=== PATIENT | female | born 1955 | race Caucasian/White ===

== ENCOUNTER 2016-12-29 15:28 | Outpatient (RCR) | payer BC ==
--- OUTSIDE RECORDS SUMMARY | 2016-12-29 15:32 | XMS REPORT | Continuity of Care Document ---
Author Author [facility] Organization [facility] Address Unknown Phone Unavailable Care Team Providers Care Steward/Stewardess Lounge Name Role Phone HENNY BROWN MD PCP Insurance Providers Payer Name Policy Number Subscriber Name Relationship [facility] [id number] Sujata Negron 18 Self / Same As Patient Advance Directives Directive Response Recorded Date/Time Advance Directives No 12/06/14 2:16am Problems Active Problems Medical Problem Onset Date Status Fever Unknown Acute Fever Unknown Acute Influenza-like symptoms Unknown Acute Nausea Unknown Acute Medications No known medications. Social History Social History Problem Response Recorded Date/Time Alcohol Use Denies Use 12/06/2014 2:16am Recreational Drug Use No 12/06/2014 2:16am Recent Foreign Travel No 04/25/2016 10:40am Sexually Transmitted Disease No 12/06/2014 2:16am HIV/AIDS No 12/06/2014 2:16am Sexually Transmitted Disease No 12/06/2014 2:16am Hospital Discharge Instructions No hospital discharge instructions. Plan of Care Prescriptions See Medication Section Functional Status No functional status results. Allergies, Adverse Reactions, Alerts No known allergies. Immunizations No immunization records. Vital Signs No known vital signs results. Results No known relevant diagnostic tests, laboratory data and/or discharge summary. Procedures No known history of procedures. Encounters Encounter Location Arrival/Admit Date Discharge/Depart Date Attending Provider Discharged Recurring [facility] 06/27/16 3:30pm 5:03pm HENNY BROWN MD
== END 2017-01-01 13:00 | disposition home or self-care (01) ==
PROVIDERS: ATTEND Orthopaedic Surgery
DX: Z47.1 Aftercare following joint replacement surgery (principal); Z96.641 Presence of right artificial hip joint

== ENCOUNTER 2020-02-20 07:58 | Inpatient (IN) | payer BC ==
[2020-02-20] VITALS (7 sets, daily range): BP systolic 104–141; BP diastolic 58–84
[~2020-02-20] VITALS: Ht 167.6 cm; Wt 79.4 kg
[2020-02-20] MEDS ORDERED: HYDR-3781 (08:02)
[2020-02-20] MEDS ORDERED: METH4TAB10 (08:02)
--- NOTE | 2020-02-20 08:06 | ED Chest Pain ---
General Chief Complaint: Chest Pain Stated Complaint: CHEST PAIN Source: patient History of Present Illness Date Seen by Provider: February 20, 2020 Time Seen by Provider: 08:01 Initial Comments 65-year-old female presents with chest pain. Patient reports that started sometime during the night she thinks maybe around 3 AM this morning. Patient is very nonspecific in her chest pain is across her whole chest. Nothing makes it worse or better per that she can recall. Patient is very very anxious and reports that she had a difficult night sleeping. Patient denies any nausea, vomiting, radiation of the pain, diaphoresis, shortness of breath. Patient has difficulty answering questions due to her anxiety with very nonspecific answers. Allergies and Home Medications Allergies Coded Allergies: tramadol (Verified Adverse Reaction, Unknown, nausea, 02/20/20) Patient Home Medication List Home Medication List Reviewed: Yes Review of Systems Review of Systems Constitutional: No chills, No fever Respiratory: Denies Cough, Denies Shortness of Air, Denies SOA With Exertion, Denies SOA at Rest Cardiovascular: Chest Pain; Denies Irregular Heart Rate, Denies Lightheadedness Gastrointestinal: Denies Abdominal Pain, Denies Diarrhea, Denies Nausea, Denies Vomiting Musculoskeletal: no symptoms reported Skin: no symptoms reported Psychiatric/Neurological: No Symptoms Reported Past [id number]-[id number] Hx Past Med/Social Hx: Reviewed Nursing Past Med/Soc Hx Patient Social History Alcohol Use: Denies Use Recreational Drug Use: No Smoking Status: Never a Smoker Immunizations Up To Date Tetanus Booster (TDap): Unknown Past Medical History Surgeries: Yes (COLONOSCOPY) Abdominal, Tonsillectomy Respiratory: No Cardiac: No Neurological: No Reproductive Disorders: No Sexually Transmitted Disease: No HIV/AIDS: No Gastrointestinal: No Musculoskeletal: No Endocrine: No Cancer: No Psychosocial: No Integumentary: No Blood Disorders: No Adverse Reaction/Blood Tranf: No Family Medical History Heart Disease, Cancer Physical Exam Vital Signs Vital Signs - First Documented 02/20/20 07:58 Temp 37.0 Pulse 64 Resp 16 B/P (MAP) 197/121 (146) Pulse Ox 100 O2 Delivery Room Air Capillary Refill : Height, Weight, BMI Height: 5'6" Weight: 160lbs. oz. 72.474285dq; BMI Method: General Appearance: No Apparent Distress, WD/WN HEENT: PERRL/EOMI, TMs Normal Respiratory: Chest Non Tender, Lungs Clear, Normal Breath Sounds Cardiovascular: Regular Rate, Rhythm, No Edema Gastrointestinal: Non Tender, Soft Extremity: Normal Capillary Refill, Normal Inspection Neurologic/Psychiatric: Alert, Oriented x3, No Motor/Sensory Deficits, Other (extremely anxious ) Skin: Normal Color, Warm/Dry Progress/Results/Core Measures Results/Orders Lab Results Laboratory Tests Test 02/20/20 08:05 Range/Units White Blood Count 7.9 4.3-11.0 10^3/uL Red Blood Count 4.71 4.35-5.85 10^6/uL Hemoglobin 14.6 11.5-16.0 G/DL Hematocrit 43 35-52 % Mean Corpuscular Volume 90 80-99 FL Mean Corpuscular Hemoglobin 31 25-34 PG Mean Corpuscular Hemoglobin Concent 34 32-36 G/DL Red Cell Distribution Width 14.2 10.0-14.5 % Platelet Count 256 130-400 10^3/uL Mean Platelet Volume 9.7 7.4-10.4 FL Neutrophils (%) (Auto) 57 42-75 % Lymphocytes (%) (Auto) 29 12-44 % Monocytes (%) (Auto) 14 H 0-12 % Eosinophils (%) (Auto) 0 0-10 % Basophils (%) (Auto) 0 0-10 % Neutrophils # (Auto) 4.5 1.8-7.8 X 10^3 Lymphocytes # (Auto) 2.3 1.0-4.0 X 10^3 Monocytes # (Auto) 1.1 H 0.0-1.0 X 10^3 Eosinophils # (Auto) 0.0 0.0-0.3 10^3/uL Basophils # (Auto) 0.0 0.0-0.1 10^3/uL Prothrombin Time 11.3 L 12.2-14.7 SEC INR Comment 0.8 0.8-1.4 Activated Partial Thromboplast Time 26 24-35 SEC Sodium Level 140 135-145 MMOL/L Potassium Level 3.9 3.6-5.0 MMOL/L Chloride Level 104 98-107 MMOL/L Carbon Dioxide Level 21 21-32 MMOL/L Anion Gap 15 H 5-14 MMOL/L Blood Urea Nitrogen 14 7-18 MG/DL Creatinine 0.91 0.60-1.30 MG/DL Estimat Glomerular Filtration Rate > 60 BUN/Creatinine Ratio 15 Glucose Level 101 70-105 MG/DL Calcium Level 9.5 8.5-10.1 MG/DL Corrected Calcium 9.2 8.5-10.1 MG/DL Magnesium Level 2.3 1.6-2.4 MG/DL Total Bilirubin 0.4 0.1-1.0 MG/DL Aspartate Amino Transf (AST/SGOT) 20 5-34 U/L Alanine Aminotransferase (ALT/SGPT) 21 0-55 U/L Alkaline Phosphatase 70 40-136 U/L Myoglobin 28.0 10.0-92.0 NG/ML Troponin I 0.062 H <0.028 NG/ML Total Protein 9.0 H 6.4-8.2 GM/DL Albumin 4.4 3.2-4.5 GM/DL My Orders Orders - GAO,TIMMY L DO Cbc With Automated Diff (02/20/20 08:07) Magnesium (02/20/20 08:07) Chest 1 View, Ap/Pa Only (02/20/20 08:07) Ekg Tracing (02/20/20 08:07) Comprehensive Metabolic Panel (02/20/20 08:07) Myoglobin Serum (02/20/20 08:07) Protime With Inr (02/20/20 08:07) Partial Thromboplastin Time (02/20/20 08:07) O2 (02/20/20 08:07) Monitor-Rhythm Ecg Trace Only (02/20/20 08:07) Lipid Panel (02/21/20 06:00) Ed Iv/Invasive Line Start (02/20/20 08:07) Troponin I (02/20/20 08:07) Aspirin Chewable Tablet (Baby Aspirin Ch (02/20/20 08:15) Famotidine Injection (Pepcid Injection) (02/20/20 08:15) Olanzapine Tablet (Zyprexa Tablet) (02/20/20 08:45) Acetaminophen Tablet (Tylenol Tablet) (02/20/20 08:32) Ekg Tracing (02/20/20 08:48) Medications Given in ED Current Medications Medications Dose Ordered Sig/Josh Route Start Time Stop Time Status Last Admin Dose Admin Aspirin 324 mg ONCE ONCE PO 02/20/20 08:15 02/20/20 08:16 DC 02/20/20 08:13 324 MG Olanzapine 2.5 mg ONCE ONCE PO 02/20/20 08:45 02/20/20 08:46 DC 02/20/20 08:43 2.5 MG Vital Signs/I&O 02/20/20 07:58 Temp 37.0 Pulse 64 Resp 16 B/P (MAP) 197/121 (146) Pulse Ox 100 O2 Delivery Room Air Progress Progress Note : Time: 09:36 Progress Note Patient's symptoms improved following treatment. Patient with 2 nonspecific EKGs. Patient with slight elevation in troponin. We do not have any prior records to compare to see if this is her baseline. Patient to be admitted to Dr. Wilson for observation. I did discuss with Dr. Lopez. We will Gilliam her troponin obtain an echo. Patient was admitted for observation in stable condition. Initial ECG Impression Date: February 20, 2020 Initial ECG Impression Time: 07:59 Initial ECG Rhythm: Normal Sinus Initial ECG Impression: Nonspecific Changes Comment Patient very anxious and difficult EKG to interpret since she is shaking and nervous Diagnostic Imaging Diagonstic Imaging: Xray Plain Films/CT/US/NM/MRI: chest Comments [facility] [place], [place] NAME: MINA NEGRON [facility] REC#: [id number] PT STATUS: REG ER : 1955 PHYSICIAN: TIMMY GAO DO ADMIT DATE: 02/20/20/ER Signed Date of Exam:02/20/20 CHEST 1 VIEW, AP/PA ONLY EXAMINATION: Chest 1 view HISTORY: Chest pain COMPARISON: 05/27/2008 FINDINGS: The lungs are clear without edema or pneumonia. No pleural effusion or pneumothorax. Heart size is normal. IMPRESSION: 1. Clear lungs. Departure Impression Primary Impression: Chest pain Qualified Codes: R07.9 - Chest pain, unspecified Additional Impression: Elevated troponin Disposition: ADMITTED INPATIENT Condition: Stable Admissions Decision to Admit Reason: Admit from ER (General) Decision to Admit/Date: February 20, 2020 Time/Decision to Admit Time: 08:30 Departure-Patient Inst. Referrals: SALTY BECK DO (PCP) Primary Care Physician TIMMY GAO DO February 20, 2020 08:06
[2020-02-20] MEDS ORDERED: FAMOTIDINE 20MG/2ML IV (PEPCID) IVP ONE (08:15)
[2020-02-20] MEDS ORDERED: ASPIRIN 81 MG CHEW (CHILDREN'S ASA) PO ONE (08:15)
--- NOTE | 2020-02-20 08:15 | NUR ---
DR GAO NOTIFIED PT HAS ALREADY HAD PEPCID TODAY.
[2020-02-20 08:26] LABS: BASOPHILS % (AUTO) 0 % (0-10); EOSINOPHILS % (AUTO) 0 % (0-10); HEMATOCRIT 43 % (35-52); HEMOGLOBIN 14.6 G/DL (11.5-16.0); LYMPHOCYTES # (AUTO) 2.3 X 10^3 (1.0-4.0); LYMPHOCYTES % (AUTO) 29 % (12-44); MEAN CORPUSCULAR HEMOGLOBIN 31 PG (25-34); MEAN CORPUSCULAR HGB CONC 34 G/DL (32-36); MEAN CORPUSCULAR VOLUME 90 FL (80-99); MEAN PLATELET VOLUME 9.7 FL (7.4-10.4); MONOCYTES # (AUTO) 1.1 X 10^3 (0.0-1.0); MONOCYTES % (AUTO) 14 % (0-12); NEUTROPHILS # (AUTO) 4.5 X 10^3 (1.8-7.8); NEUTROPHILS % (AUTO) 57 % (42-75); PLATELET COUNT 256 10^3/uL (130-400); RED CELL DISTRIBUTION WIDTH 14.2 % (10.0-14.5); WHITE BLOOD COUNT 7.9 10^3/uL (4.3-11.0)
[2020-02-20 08:30] LABS: INR 0.8 (0.8-1.4); PROTHROMBIN TIME PATIENT 11.3 SEC (12.2-14.7)
[2020-02-20] MEDS ORDERED: ACETAMINOPHEN 500 MG TAB (TYLENOL) PO STA (08:32)
--- NOTE | 2020-02-20 08:35 | NUR ---
DR GAO NOTIFIED PT WOULD LIKE SOMETHING FOR PAIN AND AXIETY.
[2020-02-20 08:36] LABS: ALANINE AMINOTRANSFERASE 21 U/L (0-55); ALBUMIN 4.4 GM/DL (3.2-4.5); ALKALINE PHOSPHATASE 70 U/L (40-136); BILIRUBIN,TOTAL 0.4 MG/DL (0.1-1.0); BUN/CREATININE RATIO 15; CALCIUM 9.5 MG/DL (8.5-10.1); CARBON DIOXIDE 21 MMOL/L (21-32); CHLORIDE 104 MMOL/L (98-107); CREATININE SERUM 0.91 MG/DL (0.60-1.30); GFR ESTIMATED > 60; GLUCOSE 101 MG/DL (70-105); MAGNESIUM 2.3 MG/DL (1.6-2.4); SODIUM 140 MMOL/L (135-145)
--- NOTE | 2020-02-20 08:37 | NUR ---
PHARMACY NOTIFIED OF NEEDING MED.
[2020-02-20 08:39] LABS: POTASSIUM 3.9 MMOL/L (3.6-5.0)
--- NOTE | 2020-02-20 08:41 | Diagnostic Imaging Report ---
EXAMINATION: Chest 1 view HISTORY: Chest pain COMPARISON: 05/27/2008 FINDINGS: The lungs are clear without edema or pneumonia. No pleural effusion or pneumothorax. Heart size is normal. IMPRESSION: 1. Clear lungs. Dictated by: Dictated on workstation # [id number]
[2020-02-20] MEDS ORDERED: OLANZapine 2.5 MG (ZyPREXA) TAB PO ONE (08:45)
--- NOTE | 2020-02-20 09:30 | NUR ---
PT STATES SHE IS FEELING BETTER.
--- NOTE | 2020-02-20 09:43 | NUR ---
ATTEMPT TO CALL REPORT ET NURSE DID NOT ANSWER.
--- OUTSIDE RECORDS SUMMARY | 2020-02-20 09:48 | XMS REPORT ---
Author Sujata Dias [facility] eClinicalWorks Address Unknown Phone Unavailable Care Team Providers Care Risk Specialist Name Role Phone BREANNA MARIE CP Unavailable Allergies No Known Allergies Problems Problem Type Condition Code Onset Dates Condition Statu s Assessment Encounter for immunization Z23 A ctive Medications No Known Medications Procedures Procedure Coding System Code Date SINGLE IMMUNIZATION ADMIN CPT-4 54066 Jul TDAP (BOOSTRIX) CPT-4 35973 Aug 09, 2015 Results No Known Results Immunizations Vaccine Administration Date TDAP (BOOSTRIX) Aug 09, 2015 Summary Purpose eClinicalWorks Submission
--- OUTSIDE RECORDS SUMMARY | 2020-02-20 09:48 | XMS REPORT ---
Author Author [facility] Organization [facility] Address [address] [place] [address] Care Team Providers Care Insurance Checker Name Role Phone HENNY BROWN Unavailable SALTY BECK Unavailable FRANKBREANNA Unavailable Unavailable BREANNA MONGE [employer] SERVICE SCHEDULER Unavailable [facility] Unavailable [phone] SALTY BECK DO Unavailable Unavailable PCP, OUTSIDE Unavailable Unavailable Allergies Normalized Allergy Reported Date of Reaction(s) Care Provider Facility Allergy Type classification allergen Allergy Onset DA (5 Unclassified No Known Drug 12-06-2014 - no information SALTY BECK Not Available sources.) Allergies , DO (74688) Medications The data below is from unstructured sourcesNo known medications.No Known Medications No Known Medications No known medications.No known medications.No known medications.No known medicati ons. 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 Immunizations The data below is from unstructured sources Name Given Type Tetanus Booster (TDap) Unknown Historical Results The data below is from unstructured sourcesNo known relevant diagnostic tests, laboratory data and/or discharge summary.No Known Results No Known Results Vital Signs The data below is from unstructured sources Vital Response Date/Time Temperature (Fahrenheit) 101.6 degre es F (97.6 - 99.5) Temperature (Calculated Celsius) 38. 61311 degrees C (36.4 - 37.5) Temperature Source Temporal Pulse Rate (adult) 120 bpm (60 - 90) Respiratory Rate 18 bpm (12 - 24) O2 Sat by Pulse Oximetry 98 % (88 - 100) Blood Pressure 146/86 mm Hg Pain Pain Intensity 7 Height (Feet) 5 feet Height (Inches) 6 inches Height (Calculated Centimeters) 167. 589316 cm Weight (Pounds) 160 pounds Weight (Calculated Kilograms) 72.574 780 kilograms Calculated BMI 25.82 Interventions No Information Plan of Treatment The data below is from unstructured sources Prescriptions See Medication Section Prescriptions No plan of care. Goals No Information Social History No Information Functional Status The data below is from unstructured sourcesNo functional status results.No functional status results.No functional status results.No functional status results.No functional status results. Mental Status No Information Encounters Encounter Normalized Encounter Encounter Diagnosis Care Provi antonino Organization Date Type 12-23-2019 Patient encounter no information OUTSIDE PCP (no ph one) [facility] procedure [facility] (no phone) 12-16-2019 Patient encounter no information OUTSIDE PCP (no ph one) [facility] procedure [facility] (no phone) 12-29-2016 Patient encounter no information no name (no phone) no organization name - procedure (no phone) 01-01-2017 Medical Equipment No Information Payers No Information Advance Directives Directive Response Recor ded Date/Time Advance Directives No 2:16am Directive Response Recor ded Date/Time Advance Directives No 2:16am Resuscitation Status Full Code 12/06/14 2:16am Discharge Instructions No hospital discharge instructions.Current inpatient/outpatient. Discharge instructions are currently unavailable.No hospital discharge instructions. Summary Purpose eClinicalWorks Submission Additional Source Comments This clinical document has been generated using [employer] software that has been certified by the Office of the National Coordinator for Health Information Technology (ONC 15.99.04.3023.Diam.31.00.0.169309) and the National Committee for [employer] (NCQA, as an eMeasure certified technology). FOR RECORDS PERTAINING TO PATIENTS WHO ARE OR HAVE BEEN ENROLLED IN A CHEMICAL D EPENDENCY/SUBSTANCE ABUSE PROGRAM, SOME INFORMATION MAY BE OMITTED. This clinica l summary was aggregated from multiple sources. Caution should be exercised in using it in the provision of clinical care. This summary normalizes information from multiple sources, and as a consequence, information in this document may ma terially change the coding, format and clinical context of patient data. In rene tion, data may be omitted in some cases. CLINICAL DECISIONS SHOULD BE BASED ON T HE PRIMARY CLINICAL RECORDS. [facility] [employer] [facility]. provides no warranty or guara ntee of the accuracy or completeness of information in this document.The followi ng information is based on time limited clinical information
--- OUTSIDE RECORDS SUMMARY | 2020-02-20 09:48 | XMS REPORT | Continuity of Care Document ---
Author Organization Unknown Address Unknown Phone Unavailable Allergies Active Description Code Type Severity Reaction Onset Reported/Identified Relationship to Patient Clinical Status Yes No Known Drug Allergies [id number] Drug Allergy Unknown N/A 12/06/2014 Medications There is no data. Problems Date Dx Coded Attending Type Code Diagnosis Diagnosed By 09/20/1143 BREANNA MONGE Ot M70.52 OTHER BURSITIS OF KNEE, LEFT KNEE 09/20/1299 SALTY BECK DO Ot Z47 .1 AFTERCARE FOLLOWING JOINT REPLACEMENT CASTILLO 09/20/1299 SALTY BECK DO Ot Z96.641 PRESENCE OF RIGHT ARTIFICIAL HIP JOINT 09/20/1702 HENNY BROWN MD Ot Z47.1 AFTERCARE FOLLOWING JOINT REPLACEMENT CASTILLO 09/20/1702 HENNY BROWN MD Ot Z96.6 41 PRESENCE OF RIGHT ARTIFICIAL HIP JOINT 12/06/2014 ALEXIS VILLALTA MD T Ot 487.1 FLU W RESP MANIFEST NEC 12/06/2014 ALEXIS VILLALTA MD T Ot 784.0 HEADACHE 04/11/2016 HENNY BROWN MD Ot D62 ACUTE POSTHEMORRHAGIC ANEMIA 04/11/2016 HENNY BROWN MD Ot Z96.6 41 PRESENCE OF RIGHT ARTIFICIAL HIP JOINT 04/12/2016 HENNY BROWN MD Ot D62 ACUTE POSTHEMORRHAGIC ANEMIA 04/12/2016 HENNY BROWN MD Ot Z96.6 41 PRESENCE OF RIGHT ARTIFICIAL HIP JOINT 04/16/2016 HENNY BROWN MD, Ot D62 ACUTE POSTHEMORRHAGIC ANEMIA 04/16/2016 HENNY BROWN MD Ot Z96.6 41 PRESENCE OF RIGHT ARTIFICIAL HIP JOINT 04/27/2016 HENNY BROWN MD, Ot D62 ACUTE POSTHEMORRHAGIC ANEMIA 04/27/2016 HENNY BROWN MD Ot Z96.6 41 PRESENCE OF RIGHT ARTIFICIAL HIP JOINT 06/19/2016 HENNY BROWN MD Ot Z47.1 AFTERCARE FOLLOWING JOINT REPLACEMENT CASTILLO 06/19/2016 HENNY BROWN MD Ot Z96.6 41 PRESENCE OF RIGHT ARTIFICIAL HIP JOINT 08/30/2016 CATRACHITA DE SOUZA [employer] PLAYER Ot R10.12 LEFT UPPER QUADRANT PAIN 08/30/2016 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 Results Test Result Range Complete blood count (CBC) with automate d white blood cell (WBC) differential - 08/26/16 15:17 Blood leukocytes automated count (number/volume) 6.9 10*3/uL 4.3-11.0 Blood erythrocytes automated count (number/volume) 4.55 10*6/uL 4.35-5.85 Venous blood hemoglobin measurement (mass/volume) 13.8 g/dL 11.5-16.0 Blood hematocrit (volume fraction) 41 % 35-52 Automated erythrocyte mean corpuscular volume 90 [ foz_us] 80-99 Automated erythrocyte mean corpuscular h emoglobin (mass per erythrocyte) 30 pg 25-34 Automated erythrocyte mean corpuscular h emoglobin concentration measurement (mass/volume) 34 g/dL 32-36 Automated erythrocyte distribution width ratio 13. 2 % 10.0- 14.5 Automated blood platelet count (count/volume) 249 10*3/uL 130-400 Automated blood platelet mean volume measurement 9.4 [foz_us] 7.4-10.4 Automated blood neutrophils/100 leukocytes 61 % 42-75 Automated blood lymphocytes/100 leukocytes 26 % 12-44 Blood monocytes/100 leukocytes 13 % 0-12 Automated blood eosinophils/100 leukocytes 0 % 0-10 Automated blood basophils/100 leukocytes 0 % 0-10 Blood neutrophils automated count (number/volume) 4.2 10*3 1.8-7.8 Blood lymphocytes automated count (number/volume) 1.8 10*3 1.0-4.0 Blood monocytes automated count (number/volume) 0. 9 10*3 0.0-1.0 Automated eosinophil count 0.0 10*3/uL 0 .0-0.3 Automated blood basophil count (count/volume) 0.0 10*3/uL 0.0-0.1 Comprehensive metabolic panel - 08/26/16 15:17 Serum or plasma sodium measurement (moles/volume) 139 mmol/L 135-145 Serum or plasma potassium measurement (moles/volume) 4.2 mmol/L 3.6-5.0 Serum or plasma chloride measurement (moles/volume) 103 mmol/L 98-107 Carbon dioxide 23 mmol/L 21-32 Serum or plasma anion gap determination (moles/volume) 13 mmol/L 5-14 Serum or plasma urea nitrogen measurement (mass/volume ) 12 mg/dL 7-18 Serum or plasma creatinine measurement (mass/volume) 0.83 mg/dL 0.60-1.30 Serum or plasma urea nitrogen/creatinine mass ratio 14 NRG Serum or plasma creatinine measurement w ith calculation of estimated glomerular filtration rate > NRG Serum or plasma glucose measurement (mass/volume) 85 mg/dL 70-105 Serum or plasma calcium measurement (mass/volume) 9.8 mg/dL 8.5-10.1 Serum or plasma total bilirubin measurement (mass/volu me) 0.3 mg/dL 0.1-1.0 Serum or plasma alkaline phosphatase scotty surement (enzymatic activity/volume) 75 U/L 40-136 Serum or plasma aspartate aminotransfera se measurement (enzymatic activity/volume) 27 U/L 5-34 Serum or plasma alanine aminotransferase measurement (enzymatic activity/volume) 32 U/L 0-55 Serum or plasma protein measurement (mass/volume) 8.7 g/dL 6.4-8.2 Serum or plasma albumin measurement (mass/volume) 4.3 g/dL 3.2-4.5 Serum or plasma C reactive protein measu rement (mass/volume) - 08/26/16 15:17 Serum or plasma C reactive protein measurement (mass/v olume) 0.29 mg/dL 0.00-0.50 Complete blood count (CBC) with automate d white blood cell (WBC) differential - 02/20/20 08:05 Blood leukocytes automated count (number/volume) 7.9 10*3/uL 4.3-11.0 Blood erythrocytes automated count (number/volume) 4.71 10*6/uL 4.35-5.85 Venous blood hemoglobin measurement (mass/volume) 14.6 g/dL 11.5-16.0 Blood hematocrit (volume fraction) 43 % 35-52 Automated erythrocyte mean corpuscular volume 90 [ foz_us] 80-99 Automated erythrocyte mean corpuscular h emoglobin (mass per erythrocyte) 31 pg 25-34 Automated erythrocyte mean corpuscular h emoglobin concentration measurement (mass/volume) 34 g/dL 32-36 Automated erythrocyte distribution width ratio 14. 2 % 10.0- 14.5 Automated blood platelet count (count/volume) 256 10*3/uL 130-400 Automated blood platelet mean volume measurement 9.7 [foz_us] 7.4-10.4 Automated blood neutrophils/100 leukocytes 57 % 42-75 Automated blood lymphocytes/100 leukocytes 29 % 12-44 Blood monocytes/100 leukocytes 14 % 0-12 Automated blood eosinophils/100 leukocytes 0 % 0-10 Automated blood basophils/100 leukocytes 0 % 0-10 Blood neutrophils automated count (number/volume) 4.5 10*3 1.8-7.8 Blood lymphocytes automated count (number/volume) 2.3 10*3 1.0-4.0 Blood monocytes automated count (number/volume) 1. 1 10*3 0.0-1.0 Automated eosinophil count 0.0 10*3/uL 0 .0-0.3 Automated blood basophil count (count/volume) 0.0 10*3/uL 0.0-0.1 PT panel in platelet poor plasma by coag ulation assay - 02/20/20 08:05 Prothrombin time (PT) in platelet poor plasma by coagu lation assay 11.3 s 12.2-14.7 INR in platelet poor plasma or blood by coagulation as say 0.8 0.8-1.4 Activated partial thromboplastin time (a PTT) in platelet poor plasma bycoagulation assay - 02/20/20 08:05 Activated partial thromboplastin time (a PTT) in platelet poor plasma bycoagulation assay 26 s 24-35 Comprehensive metabolic panel - 02/20/20 08:05 Serum or plasma sodium measurement (moles/volume) 140 mmol/L 135-145 Serum or plasma potassium measurement (moles/volume) 3.9 mmol/L 3.6-5.0 Serum or plasma chloride measurement (moles/volume) 104 mmol/L 98-107 Carbon dioxide 21 mmol/L 21-32 Serum or plasma anion gap determination (moles/volume) 15 mmol/L 5-14 Serum or plasma urea nitrogen measurement (mass/volume ) 14 mg/dL 7-18 Serum or plasma creatinine measurement (mass/volume) 0.91 mg/dL 0.60-1.30 Serum or plasma urea nitrogen/creatinine mass ratio 15 NRG Serum or plasma creatinine measurement w ith calculation of estimated glomerular filtration rate > NRG Serum or plasma glucose measurement (mass/volume) 101 mg/dL 70-105 Serum or plasma calcium measurement (mass/volume) 9.5 mg/dL 8.5-10.1 Serum or plasma total bilirubin measurement (mass/volu me) 0.4 mg/dL 0.1-1.0 Serum or plasma alkaline phosphatase scotty surement (enzymatic activity/volume) 70 U/L 40-136 Serum or plasma aspartate aminotransfera se measurement (enzymatic activity/volume) 20 U/L 5-34 Serum or plasma alanine aminotransferase measurement (enzymatic activity/volume) 21 U/L 0-55 Serum or plasma protein measurement (mass/volume) 9.0 g/dL 6.4-8.2 Serum or plasma albumin measurement (mass/volume) 4.4 g/dL 3.2-4.5 CALCIUM CORRECTED 9.2 mg/dL 8.5-10.1 Magnesium - 02/20/20 08:05 Magnesium 2.3 mg/dL 1.6-2.4 Serum or plasma troponin i.cardiac measu rement (mass/volume) - 02/20/20 08:05 Serum or plasma troponin i.cardiac measurement (mass/v olume) 0.062 ng/mL <0.028 Myoglobin, serum - 02/20/20 08:05 Myoglobin, serum 28.0 ng/mL 10.0-92.0 Encounters ACCT No. Visit Date/Time Discharge Status Pt. Type Provider Facility Loc./Unit Complaint [id number] 12/23/2019 15:10:00 12/23/2019 23:59: 59 CLS Outpatient KEVIN MICHEAL G[facility] [id number] 12/29/2016 15:28:00 017 13:00:00 DIS Outpatient SALTY BECK DO [facility] REHAB R HIP PAIN S/P TELLO [id number] 08/26/2016 15:05:00 23:59:59 CLS Outpatient CATRACHITA DE SOUZA APRN [facility] LAB CBC C AUTO CMP, CRD [id number] 06/27/2016 15:30:00 23:59:59 CLS Outpatient HENNY BROWN MD [facility] REHAB S/P THR [id number] 04/10/2016 16:42:00 23:59:59 CLS Outpatient HENNY BROWN MD [facility] [id number] 03/31/2016 11:25:00 11:44:00 DIS Outpatient BREANNA MONGE [facility] REHAB TRAUMATIC BURSITIS L [facility] [id number] 02/17/2016 10:28:00 23:59:59 CLS Outpatient BREANNA MONGE [facility] OCC TRIPPED FELL ON LEFT KNEE [id number] 12/06/2014 02:08:00 03:27:00 DIS Emergency PAWAN CALABRESE, ALEXIS Bell [facility] ER [id number] 02/20/2020 08:27:00 Document Registration
[2020-02-20] MEDS ORDERED: CATHETER FLUSH 10 ML SYR IV PRN (10:15)
--- NOTE | 2020-02-20 10:46 | NUR ---
CALLED AND ADVISED DR COMBS THAT PT WAS TO FLOOR PER DR MCKINNEY'S ORDERS
[2020-02-20] MEDS ORDERED: ACETAMINOPHEN 325 MG TABLET PO PRN (12:30)
[2020-02-20] MEDS ORDERED: PANTOPRAZOLE 40 MG (PROTONIX) VIAL IV ONE (12:45)
[2020-02-20] MEDS ORDERED: ALPRAZolam 0.25 MG (XANAX) TAB PO PRN (12:45)
--- NOTE | 2020-02-20 13:10 | NUR ---
AT 1000 MINA NEGRON admitted to room 408-1, with an admitting diagnosis of CHEST PAIN ELEVATED TROPIN, on 02/20/20 from Ender Jain, accompanied by MEDINA ROQUE.MINA NEGRON introduced to surroundings, call light, bed controls, phone, TV, temperature control, lights, meal times, smoking policy, visitor policy, side rail policy, bathrooms and showers. Patient Rights given to patient in the handbook. MINA NEGRON verbalizes understanding that [facility] is not responsible for the loss or damage to any personal effects or valuables that are kept in the patients posession during their hospitalization. The following Patient Care Plans were discussed with the PT: Discharge Planning, ALT CARDIOPULMONARY TISSUE PERFUSSION, PAIN, ACT INTOL, AND ANXIEXY. MINA NEGRON verbalizes understanding of Interdisciplinary Patient Education. Patient and/or family were informed about the Rapid Response Team and its purpose. PT REPORT NO CHEST PAIN WHEN TO [facility] -- WANTING TO EAT AND WAS FED COLD TRAY -- PT REPORTED HEN SHE HAD CHEST PAIN IT WA DULL AND WAS ACCROOS HER CHEST ABOVE THE BREAST REPORT FROM ER AT 0950 SAMUEL, CAME TO FLOOR FROM ER WITH SL IN R HAND --
--- NOTE | 2020-02-20 13:15 | NUR ---
AT 1304 LAB CALLED CRITICAL TROP. OF 4.161 -- DR COMBS WAS CALLED AND THIS RN LEFT MESSAGE ON HIS PHONE, AND THIS RN ALSO TEXTED HIM WITH THE INFORMATION, DR MCKINNEY WAS ON FLOOR AND THIS RN ADVISED HIS AND THIS RN ADVISED HIM SHE HAD CALLED DR ALLEN
[2020-02-20] MEDS ORDERED: HEParin DRIP 25000 UNIT/500ML 500 ML IV SCH (13:23)
[2020-02-20] MEDS ORDERED: TICAGRELOR 90 MG TABLET (BRILINTA) PO ONE (13:30)
[2020-02-20 13:45] LABS: HEMOGLOBIN 13.8 G/DL (11.5-16.0); MEAN PLATELET VOLUME 10.1 FL (7.4-10.4); WHITE BLOOD COUNT 7.9 10^3/uL (4.3-11.0)
[2020-02-20 13:51] LABS: INR 0.8 (0.8-1.4); PROTHROMBIN TIME PATIENT 11.6 SEC (12.2-14.7)
[2020-02-20] MEDS: CATHETER FLUSH 10 ML SYR IV SCH ×2 (14:00→22:00)
--- NOTE | 2020-02-20 14:10 | NUR ---
TRANSFERRED TO ICU BED 5 -- BEDSIDE REPORT TO COREMAKER BENCH
[2020-02-20] MEDS ORDERED: NAPR220C11 PO (14:19)
[2020-02-20] MEDS ORDERED: ACET-2267 PO (14:19)
--- NOTE | 2020-02-20 14:21 | NUR ---
PER PLANISHER THIS RN CALLED AND LEFT MESSAGE FOR DR COMBS TO PUT IN HEART CATH CONSENT(WORDED HOW HE WANTED)
--- NOTE | 2020-02-20 14:34 | NUR ---
SPOKE WITH THE PT TO COMPLETE THE MED REC PATIENT INDICATES SHE DOES NOT TAKE ANY PRESCRIPTION MEDICATION OTC MEDS: ALEVE & TYLENOL BOTH PRN
--- NOTE | 2020-02-20 15:01 | NUR ---
DIRECTOR DIABETES WAS CALLED TO CLARIFY THE WORDING ON THE CONSENT FOR HEART CATH - DR COMBS TEXT TO THIS RN THAT THERE IS AN OLD CATH ONSENT THAT HAS THE VERBIAGE -- DIRECTOR DIABETES ADVISED THIS RN THAT THEE WA NOT -- AND THAT SHE WOULD HAVE ICU STAFF DO THE CONSENT
[2020-02-20] MEDS: HEParin 1000 UNIT/ML (10ML VIAL) FOR BOLUS IV PRN ×2 (15:44→21:43)
--- NOTE | 2020-02-20 19:14 | Consultation-Cardiology ---
HPI-Cardiology Cardiology Consultation: Date of Consultation 02/20/20 Date of Admission Attending Physician Ruth Wilson MD Admitting Physician Armin Lorenzana DO Consulting Physician Hank LOPEZ MD HPI: Time Seen by a Provider: 12:15 Chief Complaint: Chest pain This is a 65-year-old female with no significant post medical history who presented with prolonged episode of chest pain. She describes the chest pain as pressure in the middle of the chest. No radiation. No exacerbating or relieving factors. Some improvement with nitroglycerin. She denies any other cardiac symptoms. Intensity moderate. She was having very mild chest discomfort when I saw the patient. She denies active smoking. She does not have any significant premature CAD in the family. Review of Systems-Cardiology Review of Systems Constitutional: As described under HPI; No As described under HPI, No no symptoms reported, No chills, No fever, No lightheadedness Eyes: No As described under HPI, No no symptoms reported, No blindness, No blurred vision, No contact lenses, No drainage, No decreased acuity, No foreign body sensation, No pain, No vision change Ears/Nose/Throat: No As described under HPI, No no symptoms reported, No chronic hearing loss, No ear discharge, No ear pain, No nasal drainage, No ulcerations Respiratory: No no symptoms reported; As described under HPI; No As described under HPI, No cough, No orthopnea, No shortness of breath, No SOB with excertion Cardiovascular: No no symptoms reported; As described under HPI; No As described under HPI; chest pain; No edema, No irregular heart rate, No lightheadedness, No palpitations Gastrointestinal: No no symptoms reported, No As described under HPI, No abdomen distended, No abdominal pain, No blood streaked bowels, No constipation, No diarrhea, No nausea, No vomiting, No stool coloration changes Genitourinary: No As described under HPI, No burning, No dysuria, No discharge, No frequency, No flank pain, No hematuria, No urgency : Yes : No Skin: No rash, No skin related problems, No ulcerations Psychiatric/Neurological: No anxiety, No depression, No seizure, No focal weakness, No syncope Hematologic: No bleeding abnormalities WPX-Bzpvfs-Eahzrb Hx Patient Social History Alcohol Use: Denies Use Recreational Drug Use: No Smoking Status: Never a Smoker Recent Foreign Travel: No Recent Infectious Disease Expo: No Physical Abuse Screen: No Sexual Abuse: No Immunizations Up To Date Tetanus Booster (TDap): Unknown Past Medical History PMH As described under Assessment. Family Medical History Family History: Patient reports no known family medical history. Allergies and Home Medications Allergies Coded Allergies: tramadol (Verified Adverse Reaction, Unknown, nausea, 02/20/20) Home Medications Acetaminophen 500 Mg Tablet, 1,000 MG PO Q8H PRN for PAIN-MILD (1-4), (Reported) Naproxen Sodium 220 Mg Capsule, 220-440 MG PO Q8H PRN for PAIN-MILD (1-4), (Reported) Patient Home Medication List Home Medication List Reviewed: Yes Physical Exam-Cardiology Physical Exam Vital Signs/I&O 02/20/20 02/21/20 02/21/20 02/21/20 23:48 01:00 01:00 02:00 Temp 36.4 Pulse 64 58 56 55 Resp 16 15 13 B/P (MAP) 111/58 (75) 102/54 (70) 110/60 (77) Pulse Ox 99 95 96 O2 Delivery Room Air Room Air Room Air 02/21/20 02/21/20 02/21/20 02/21/20 03:00 04:00 04:00 05:00 Temp 36.5 Pulse 57 63 64 Resp 20 13 12 B/P (MAP) 115/67 (83) 110/62 (78) 105/65 (78) Pulse Ox 96 98 97 O2 Delivery Room Air Room Air Room Air 02/21/20 02/21/20 02/21/20 02/21/20 06:00 07:00 07:27 08:00 Temp 36.4 Pulse 65 58 61 Resp 20 11 B/P (MAP) 106/64 (78) 126/79 (95) Pulse Ox 97 98 98 O2 Delivery Room Air Room Air Room Air 02/21/20 00:00 Intake Total 390 ml Output Total 0 ml Balance 390 ml Capillary Refill : Less Than 3 Seconds Constitutional: appears stated age, AAO x 3; No apparent distress; well- developed, well-nourished HEENT: PERRL; No discharge; hearing is well preserved, oral hygience is good; No ulceration, No xanthelasmas are seen Neck: No carotid bruit; carotid pulses are 2 + bilaterally Respiratory: chest is bilaterally symmetric, lungs clear to auscultation Cardiovascular: regular rate-rhythm, S1 and S2 Gastrointestinal: soft, audible bowel sounds; No spleenomegaly Rectal: deferred Extremities: normal range of motion, non-tender, normal inspection; No clubbing, No cyanosis; no lower extremity edema bilateral; No significant edema Neurologic/Psychiatric: no motor/sensory deficits, alert, normal mood/affect, oriented x 3, power is 5/5 both on sides Skin: normal color; No rash, No ulcerations Data Review Labs Laboratory Tests 02/20/20 12:28: White Blood Count 7.9, Red Blood Count 4.61, Hemoglobin 13.8, Hematocrit 42, Mean Corpuscular Volume 91, Mean Corpuscular Hemoglobin 30, Mean Corpuscular Hemoglobin Concent 33, Red Cell Distribution Width 14.0, Platelet Count 258, Mean Platelet Volume 10.1, Prothrombin Time 11.6L, INR Comment 0.8, Activated Partial Thromboplast Time 26, Troponin I 4.161*H 02/20/20 16:13: Troponin I 5.608*H 02/20/20 19:30: Activated Partial Thromboplast Time 48H 02/21/20 04:08: Platelet Count 244, Activated Partial Thromboplast Time 26, Troponin I 5.108*H, Triglycerides Level 171H, Cholesterol Level 226H, LDL Cholesterol Direct 186H, VLDL Cholesterol 34, HDL Cholesterol 37L 02/21/20 05:40: Activated Partial Thromboplast Time 188*H ECG Impression ECG Initial ECG Rhythm: Normal Sinus Comment T-wave inversions noted. A/P-Cardiology Assessment/Admission Diagnosis Non-STEMI, Hyperlipidemia Plan Non-STEMI: I discussed at length about coronary angiography with the patient. Informed consent was taken. Risk of 1-2 percent was explained. There is a small risk of as well which was explained to the patient. The patient accepted all risks and complication and wanted to proceed with the procedure if troponins continue to trend up. I'll recommend an echocardiogram. Aspirin was given. Her second set of troponin was significantly elevated therefore patient was given Brilinta bolus 180 mg and started on IV heparin and transferred to the ICU. Low dose beta blockers were also started. Hyperlipidemia: High-dose statin will be given. Thank you for your consultation. Please call me if you have any questions. Devon Lopez MD, FACP, FACC, FSCAI, FHRS, CCDS Interventional Cardiology Cardiac Electrophysiology Vascular Medicine and Endovascular Interventions Clinical Quality Measures AMI/AHF: ASA po Prior to arrival: No DVT/VTE Risk/Contraindication: Risk Factor Score Per Nursin RFS Level Per Nursing on Admit: 2=Moderate Hank LOPEZ MD February 20, 2020 19:14
[2020-02-20] MEDS: TICAGRELOR 90 MG TABLET (BRILINTA) PO SCH (20:26)
[2020-02-20] MEDS: meTOprolol TARTRATE 25 MG (LOPRESSOR) TABLET PO SCH (20:26)
[2020-02-21] VITALS (20 sets, daily range): BP systolic 70–126; BP diastolic 44–79
[2020-02-21] MEDS: HEParin 1000 UNIT/ML (10ML VIAL) FOR BOLUS IV PRN (04:57)
[2020-02-21] MEDS: CATHETER FLUSH 10 ML SYR IV SCH ×3 (05:00→22:02)
[2020-02-21] MEDS: TICAGRELOR 90 MG TABLET (BRILINTA) PO SCH ×2 (07:30→21:52)
[2020-02-21] MEDS: meTOprolol TARTRATE 25 MG (LOPRESSOR) TABLET PO SCH (07:30)
[2020-02-21] MEDS ORDERED: LIDOCAINE 1% INJ 20 ML 20 ML VIAL ONE (08:02)
[2020-02-21] MEDS ORDERED: HEParin (CATH LAB) 2,000 ML IV ONE (08:03)
--- NOTE | 2020-02-21 08:05 | History & Physical-Hospitalist ---
History of Present Illness HPI/Chief Complaint Sujata Nixon is a 65-year-old female with no significant past medical history who presented with chest pain. She reports that the pain is like pressure in the center of her chest. She denies any radiation to her neck, jaw, or arms. She denies any associated diaphoresis, nausea, vomiting, or shortness of breath. She denies any aggravating or alleviating factors. She says that her pain has improved at this time. She denies ever having pain like this before. She denies any cough. She denies any trauma. She denies any fevers or chills. She denies any abdominal pain. She is a nonsmoker. Source: patient Exam Limitations: no limitations Date Seen 02/21/20 Time Seen by a Provider: 14:00 Attending Physician Ruth Mckinney MD PCP Armin Lorenzana DO Referring Physician Date of Admission February 20, 2020 at 09:36 Home Medications & Allergies Home Medications Reviewed patient Home Medication Reconciliation performed by pharmacy medication reconciliations cotton program technician and/or nursing. Patients Allergies have been reviewed. Allergies Allergies Coded Allergies tramadol (Verified Adverse Reaction, Unknown, nausea, 02/20/20) Past Brfbrls-Nfexem-Rprvep Hx Past Med/Social Hx: Reviewed Nursing Past Med/Soc Hx Patient Social History Alcohol Use: Denies Use Recreational Drug Use: No Smoking Status: Never a Smoker Physical Abuse Screen: No Sexual Abuse: No Recent Foreign Travel: No Contact w/other who traveled: No Recent Infectious Disease Expo: No Immunizations Up To Date Tetanus Booster (TDap): Unknown Past Medical History Surgeries: Abdominal, Tonsillectomy : No Reproductive: No Sexually Transmitted Disease: No HIV/AIDS: No History of Blood Disorders: No Adverse Reaction to Blood Bell: No Family History Patient reports no known family medical history. Heart Disease, Cancer Review of Systems Constitutional: no symptoms reported EENTM: no symptoms reported Respiratory: no symptoms reported Cardiovascular: chest pain Gastrointestinal: no symptoms reported Genitourinary: no symptoms reported Musculoskeletal: no symptoms reported Skin: no symptoms reported Psychiatric/Neurological: No Symptoms Reported Physical Exam Physical Exam Vital Signs Vital Signs - First Documented 02/20/20 07:58 Temp 37.0 Pulse 64 Resp 16 B/P (MAP) 197/121 (146) Pulse Ox 100 O2 Delivery Room Air Capillary Refill : Less Than 3 SecondsLess Than 3 Seconds Height, Weight, BMI Height: 5'6" Weight: 160lbs. oz. 72.023337dd; 28.26 BMI Method: General Appearance: No Apparent Distress, WD/WN, Anxious HEENT: PERRL/EOMI, Pharynx Normal Neck: Normal Inspection, Supple Respiratory: Lungs Clear, Normal Breath Sounds, No Respiratory Distress Cardiovascular: Regular Rate, Rhythm, No Edema, No Murmur Gastrointestinal: Normal Bowel Sounds, Non Tender, Soft Extremity: Normal Inspection, Non Tender, No Pedal Edema Neurologic/Psychiatric: Alert, Oriented x3, No Motor/Sensory Deficits, Normal Mood/Affect Skin: Normal Color, Warm/Dry Results Results/Procedures Labs Laboratory Tests 02/20/20 08:05 02/20/20 12:28 02/21/20 04:08 Patient resulted labs reviewed. Imaging: Reviewed Imaging Report Assessment/Plan Admission Diagnosis NSTEMI Admission Status: Inpatient Order (span 2 midnights) Reason for Inpatient Admission: NSTEMI requiring IV medications and likely intervention Assessment and Plan NSTEMI Troponin 0.062 on arrival, repeat 4.161 EKG with normal sinus rhythm, nonspecific changes Chest x-ray normal CBC and BMP within normal limits Cardiology consulted, appreciate assistance Loaded with aspirin and Brilinta Started on heparin GTT Begin Lipitor Begin metoprolol Echocardiogram ordered Planning for left heart catheterization tomorrow 02/20 Check lipid panel tomorrow morning DVT prophylaxis: Already receiving therapeutic anticoagulation Diagnosis/Problems Diagnosis/Problems (1) NSTEMI (non-ST elevation myocardial infarction) Status: Acute Clinical Quality Measures AMI/AHF: ASA po Prior to arrival: No DVT/VTE Risk/Contraindication: Risk Factor Score Per Nursin RFS Level Per Nursing on Admit: 2=Moderate RUTH MCKINNEY MD February 21, 2020 08:05
[2020-02-21] MEDS ORDERED: VERAPAMIL 5 MG/2 ML (CALAN) VIAL IV ONE ×2 (08:16→08:52)
[2020-02-21] MEDS ORDERED: MIDAZOLAM 5 MG/5 ML (VERSED) VIAL ONE (08:16)
[2020-02-21] MEDS ORDERED: NITRO DRIP 25000 MCG/D5W 0 ML IV ONE (08:16)
[2020-02-21] MEDS ORDERED: HEParin 1000 UNIT/ML (10ML VIAL) FOR BOLUS ONE ×2 (08:16→08:52)
[2020-02-21] MEDS ORDERED: fentaNYL INJECTION 100 MCG/2 ML AMP ONE (08:16)
[2020-02-21] MEDS ORDERED: NS IV 1000 ML 1,000 ML ONE ×2 (08:16→08:52)
[2020-02-21] MEDS ORDERED: NITRO DRIP 25000 MCG/D5W 250 ML IV ONE (08:52)
[2020-02-21] MEDS: NS IV 1000 ML 1,000 ML IV SCH ×4 (09:20→22:01)
--- NOTE | 2020-02-21 09:33 | Progress Note - Hospitalist ---
Subjective HPI/CC On Admission Date Seen by Provider: February 21, 2020 Time Seen by Provider: 08:00 Sujata Nixon is a 65-year-old female with no significant past medical history who presented with chest pain. She reports that the pain is like pressure in the center of her chest. She denies any radiation to her neck, jaw, or arms. She denies any associated diaphoresis, nausea, vomiting, or shortness of breath. She denies any aggravating or alleviating factors. She says that her pain has improved at this time. She denies ever having pain like this before. She denies any cough. She denies any trauma. She denies any fevers or chills. She denies any abdominal pain. She is a nonsmoker. Subjective/Events-last exam She reports that her chest pain has completely resolved. She denies any complaints or concerns. She does say that she is anxious about the procedure. She denies any shortness of breath. She denies any nausea or vomiting. She denies any palpitations. She denies any fevers or chills. Objective Exam Vital Signs Vital Signs Date Time Temp Pulse Resp B/P (MAP) Pulse Ox O2 Delivery O2 Flow Rate FiO2 02/21/20 07:27 36.4 61 11 126/79 (95) 98 Room Air Capillary Refill : Less Than 3 SecondsLess Than 3 Seconds General Appearance: No Apparent Distress, WD/WN, Anxious Respiratory: Lungs Clear, Normal Breath Sounds, No Respiratory Distress Cardiovascular: Regular Rate, Rhythm, No Edema, No Murmur Gastrointestinal: Normal Bowel Sounds, Non Tender, Soft Extremity: Normal Inspection, No Pedal Edema Neurologic/Psychiatric: Alert, Oriented x3, No Motor/Sensory Deficits, Normal Mood/Affect Skin: Normal Color, Warm/Dry Results/Procedures Lab Laboratory Tests 02/20/20 12:28 02/21/20 04:08 Patient resulted labs reviewed. Imaging: Reviewed Imaging Report Assessment/Plan Assessment and Plan Assess & Plan/Chief Complaint NSTEMI Hyperlipidemia Troponin 0.062 on arrival, peaked at 5.608, now trending down Cardiology consulted, appreciate assistance Lipid panel with elevated cholesterol, triglycerides, and LDL, HDL low Continue aspirin, Brilinta, Lipitor, metoprolol Consider addition of DEDRA inhibitor prior to discharge Continue heparin GTT Echocardiogram ordered Planning for left heart catheterization today 5/2 DVT prophylaxis: Already receiving therapeutic anticoagulation Diagnosis/Problems Diagnosis/Problems (1) NSTEMI (non-ST elevation myocardial infarction) Status: Acute (2) Hyperlipidemia Status: Chronic Clinical Quality Measures AMI/AHF: ASA po Prior to arrival: No DVT/VTE Risk/Contraindication: Risk Factor Score Per Nursin RFS Level Per Nursing on Admit: 2=Moderate IRENA MCKINNEY MD February 21, 2020 09:33
[2020-02-21] MEDS ORDERED: EPTIFIBATIDE BOLUS 20 ML IV ONE (09:57)
--- NOTE | 2020-02-21 10:22 | Cardiac Procedure Note-CS/ASA ---
Pre-Procedure Note Pre-Op Procedure Note H&P Reviewed The H&P was reviewed, patient examined and no changes noted. Date H&P Reviewed: February 21, 2020 Time H&P Reviewed: 08:55 Conscious Sedation Pre-Proced Time 08:55 ASA Score 3 For ASA 3 and 4: Consider anesthesia and medical clearance. Also, for patients with a history of failed moderate sedation consider anesthesia. Airway Lungs Heart ASA score ASA 1: a normal healthy patient ASA 2: a patient with a mild systemic disease (mid diabetes, controlled hypertension, obesity ASA 3: a patient with a severe systemic disease that limits activity (angina, COPD, prior Myocardial infarction) ASA 4: a patient with an incapacitating disease that is a constant threat to life (CHF, renal failure) ASA 5: a moribund patient not expected to survive 24 hrs. (ruptured aneurysm) ASA 6: a declared brain- patient whose organs are being harvested. For emergent operations, add the letter E after the classification Mallampati Classification Grade 1 Sedation Plan Analgesia, Amnesia, Plan communicated to team members, Discussed options with patient/fam, Discussed risks with patient/fam The patient is an appropriate candidate to undergo the planned procedure, sedation, and anesthesia. The patient immediately re-assessed prior to indication. Hank COMBS MD February 21, 2020 10:22
--- NOTE | 2020-02-21 10:29 | Coronary Angiography & PCI ---
Coronary Angiography & PCI DATE OF PROCEDURE: 02/21/20 INDICATION: Non-STEMI PREOPERATIVE DIAGNOSIS: Non-STEMI POSTOPERATIVE DIAGNOSIS: Severe single-vessel disease, status post drug-eluting stent. HISTORY: This is a 65-year-old lady with no significant past medical history who presented with chest pain and positive troponin. Working diagnosis is non- STEMI. Therefore, the patient was scheduled for coronary angiography. PROCEDURES PERFORMED: 1.Coronary angiography. 2.Left heart catheterization. 3.PCI to the proximal RCA with a drug-eluting stent. COMPLICATIONS: None. SPECIMENS: None. ESTIMATED BLOOD LOSS: 10 mL ANESTHESIA: Conscious sedation ANTICOAGULATION: IV heparin CONTRAST: 94 mL. FLUOROSCOPY: 8.7 minutes. FLOUROSCOPY DOSE: 886 mgy. PROCEDURE DETAILS: The patient is a 65 female and was brought to the labor relations analyst after informed consent was taken. All the risks and complications were explained in detail; this included the risk of bleeding, vascular damage, stroke, SC and even . The patient was draped and prepped in the usual sterile fashion. We tried to gain access in the right radial artery but were not able to advance a wire. Therefore access was gained in the right femoral artery with a 5 Arabic sheath. Coronary angiography and left heart catheterization was performed with a JR4 and JL4 catheter. FINDINGS: 1.Left main: Patent. 2.LAD: Mild to moderate first diagonal artery stenosis. The main LAD artery is small in size with no significant stenosis. 3.Left circumflex artery: Patent artery with very mild slow flow suggesting microvascular dysfunction. 4.RCA: Severe proximal stenosis with significant thrombus burden. Stenosis severity is 99 percent with ANA MARIA 2 flow. 5.Left heart catheterization: LV 104/8 mmHg. LVEDP 13 mmHg. Aortic pressure 104/55 mmHg. Normal LV function with no wall motion abnormality. No gradient across the aortic valve. RECOMMENDATIONS: PCI to the proximal RCA is recommended. INTERVENTION DETAILS: JR4 guide catheter, BMW guidewire, IV heparin for anticoagulation. ACT was 229 seconds. Due to the thrombus burden double bolus Integrilin was given. Patient was already on aspirin and Brilinta. Brilinta bolus 180 mg by mouth was given yesterday. We crossed the lesion with the BMW wire. The tip of the wire was placed in the distal RCA. Predilatation was done with emerge 2.0 x 12 mm balloon at 12 citlaly for 34 seconds. We then deployed a resolute integrity 2.5 x 26 mm stent at 16 citlaly for 18 seconds. Postdilatation was done with an NC Quantum 2.75 x 12 mm balloon. Inflation was done in the distal, mid and proximal segment at 16 citlaly for 16 seconds, 18 citlaly for 13 seconds, 18 citlaly for 11 seconds respectively. However a waist was still noted. Therefore we went back in and performed postdilatation at 20 citlaly at 33 seconds. Excellent angiographic results with ANA MARIA-3 flow. No residual stenosis. The wire was taken out and final angiogram showed no vascular complication and excellent results. The right femoral artery was closed with a minx device. The patient left the catheter lab with stable vital signs. CONCLUSIONS: 1. Non-STEMI; Severe proximal RCA stenosis treated with a drug-eluting stent. 2. Dual antiplatelet therapy for at least 1 year. 3. Secondary prevention measures with a beta manjinder, DEDRA inhibitor and high- dose statin therapy. Devon Lopez MD, FACP, FACC, [facility] Interventional Cardiology Hank LOPEZ MD February 21, 2020 10:29
[2020-02-21] MEDS ORDERED: PATIENT MAY USE OWN MEDS, ALL PO SCH (10:30)
[2020-02-21] MEDS ORDERED: ONDANSETRON 4 MG/2 ML (SDV) Z0FRAN ONE (10:37)
--- NOTE | 2020-02-21 10:38 | Cardiology Progress Note ---
Cardiology SOAP Progress Note Subjective: No chest pain. Objective: I&O/Vital Signs 02/20/20 02/21/20 02/21/20 02/21/20 23:48 01:00 01:00 02:00 Temp 36.4 Pulse 64 58 56 55 Resp 16 15 13 B/P (MAP) 111/58 (75) 102/54 (70) 110/60 (77) Pulse Ox 99 95 96 O2 Delivery Room Air Room Air Room Air 02/21/20 02/21/20 02/21/20 02/21/20 03:00 04:00 04:00 05:00 Temp 36.5 Pulse 57 63 64 Resp 20 13 12 B/P (MAP) 115/67 (83) 110/62 (78) 105/65 (78) Pulse Ox 96 98 97 O2 Delivery Room Air Room Air Room Air 02/21/20 02/21/20 02/21/20 02/21/20 06:00 07:00 07:27 08:00 Temp 36.4 Pulse 65 58 61 Resp 20 11 B/P (MAP) 106/64 (78) 126/79 (95) Pulse Ox 97 98 98 O2 Delivery Room Air Room Air Room Air 02/21/20 00:00 Intake Total 390 ml Output Total 0 ml Balance 390 ml Weight (Pounds): 160 Weight (Calculated Kilograms): 72.789084 Constitutional: appears stated age, AAO x 3; No apparent distress; well- developed, well-nourished Respiratory: chest is bilaterally symmetric, lungs clear to auscultation Cardiovascular: regular rate-rhythm, S1 and S2 Gastrointestional: soft, audible bowel sounds; No spleenomegaly Extremities: normal range of motion, non-tender, normal inspection; No clubbing, No cyanosis; no lower extremity edema bilateral; No significant edema Neurologic/Psychiatric: no motor/sensory deficits, alert, normal mood/affect, oriented x 3, power is 5/5 both on sides Skin: normal color; No rash, No ulcerations Results/Procedures: Labs Laboratory Tests 02/20/20 12:28: White Blood Count 7.9, Red Blood Count 4.61, Hemoglobin 13.8, Hematocrit 42, Mean Corpuscular Volume 91, Mean Corpuscular Hemoglobin 30, Mean Corpuscular Hemoglobin Concent 33, Red Cell Distribution Width 14.0, Platelet Count 258, Mean Platelet Volume 10.1, Prothrombin Time 11.6L, INR Comment 0.8, Activated Partial Thromboplast Time 26, Troponin I 4.161*H 02/20/20 16:13: Troponin I 5.608*H 02/20/20 19:30: Activated Partial Thromboplast Time 48H 02/21/20 04:08: Platelet Count 244, Activated Partial Thromboplast Time 26, Troponin I 5.108*H, Triglycerides Level 171H, Cholesterol Level 226H, LDL Cholesterol Direct 186H, VLDL Cholesterol 34, HDL Cholesterol 37L 02/21/20 05:40: Activated Partial Thromboplast Time 188*H A/P: Assessment/Dx: Non-STEMI, Hyperlipidemia Plan: Non-STEMI: Aspirin, Brilinta, statin, IV heparin. Coronary angiography today. Hyperlipidemia: High-dose statin. Thank you for your consultation. Please call me if you have any questions. Devon Lopez MD, FACP, FACC, FSCAI, FHRS, CCDS Interventional Cardiology Cardiac Electrophysiology Vascular Medicine and Endovascular Interventions Clinical Quality Measures AMI/AHF: ASA po Prior to arrival: Hank Morin MD February 21, 2020 10:38
[2020-02-21] MEDS ORDERED: NS IV 1000 ML 1,000 ML IV STA ×2 (11:00→11:38)
[2020-02-21] MEDS ORDERED: ONDANSETRON 4 MG/2 ML (SDV) Z0FRAN IVP PRN (11:00)
--- NOTE | 2020-02-21 19:45 | NUR ---
This RN notified Dr. Lopez that patient is still feeling lightheaded, cath insertion site soft with some bruising and patient is sore, SBP in 90's. New orders received for: H&H STAT, NS at 100ml/hr continuous, hold lopressor and lisinopril, and give Brilinta.
[2020-02-21] MEDS ORDERED: meTOprolol TARTRATE 50 MG (LOPRESSOR) TAB PO SCH (21:00)
[2020-02-21 21:07] LABS: HEMOGLOBIN 9.9 G/DL (11.5-16.0)
--- NOTE | 2020-02-21 21:20 | NUR ---
This RN notified Dr. Lopez that patient's Hgb is 9.9 and Hct is 31. Pt state's she is "no longer feeling lightheaded". Current vitals: HR 68 Sa02 93% on RA BP 113/64. No new orders received at this time. This RN will continue to monitor.
[2020-02-22] VITALS (9 sets, daily range): BP systolic 100–133; BP diastolic 46–68
[2020-02-22 04:09] LABS: HEMOGLOBIN 9.8 G/DL (11.5-16.0); MEAN PLATELET VOLUME 9.6 FL (7.4-10.4); RED CELL DISTRIBUTION WIDTH 14.1 % (10.0-14.5); WHITE BLOOD COUNT 8.3 10^3/uL (4.3-11.0)
[2020-02-22 04:23] LABS: CHLORIDE 112 MMOL/L (98-107); POTASSIUM 3.8 MMOL/L (3.6-5.0); SODIUM 140 MMOL/L (135-145)
[2020-02-22 04:25] LABS: GLUCOSE 93 MG/DL (70-105)
[2020-02-22 04:27] LABS: CARBON DIOXIDE 18 MMOL/L (21-32)
[2020-02-22 04:29] LABS: CREATININE SERUM 0.76 MG/DL (0.60-1.30); GFR ESTIMATED > 60
[2020-02-22 04:30] LABS: BUN/CREATININE RATIO 14
[2020-02-22] MEDS: CATHETER FLUSH 10 ML SYR IV SCH (06:00)
--- NOTE | 2020-02-22 07:15 | NUR ---
This RN notified Dr. Lopez of patient's morning Hgb and Hct. New order received for patient to ambulate.
[2020-02-22] MEDS: NS IV 1000 ML 1,000 ML IV SCH ×4 (07:48→08:55)
[2020-02-22] MEDS: TICAGRELOR 90 MG TABLET (BRILINTA) PO SCH (08:55)
[2020-02-22] MEDS ORDERED: lisINopril 5 MG (PRINIVIL) TABLET PO SCH (09:00)
[2020-02-22] MEDS ORDERED: ASPIRIN E.C. 81 MG (ECOTRIN) TAB PO SCH (09:00)
[2020-02-22] MEDS ORDERED: LISI-556 PO (11:06)
[2020-02-22] MEDS ORDERED: ASPI-983 PO (11:06)
[2020-02-22] MEDS ORDERED: ATOR80TA64 PO (11:06)
[2020-02-22] MEDS ORDERED: METO50TA15 PO (11:06)
[2020-02-22] MEDS ORDERED: TICA90TA PO (11:06)
--- NOTE | 2020-02-22 19:09 | Cardiology Progress Note ---
Cardiology SOAP Progress Note Subjective: No cardiac complaints. Objective: I&O/Vital Signs 02/22/20 02/22/20 02/22/20 02/22/20 08:00 08:00 08:00 12:00 Temp 37.3 37.7 Pulse 73 B/P (MAP) 112/60 (77) Pulse Ox 98 98 O2 Delivery Room Air Room Air 02/22/20 02/22/20 12:23 13:00 Pulse 75 72 Resp 18 B/P (MAP) 133/66 (88) Pulse Ox 100 O2 Delivery Room Air 02/22/20 00:00 Intake Total 1900 ml Output Total 450 ml Balance 1450 ml Weight (Pounds): 160 Weight (Calculated Kilograms): 72.836303 Side: right Groin site without hematoma: Yes Condition: DP/PT pulses palpable Bruising: mild bruising Constitutional: appears stated age, AAO x 3; No apparent distress; well- developed, well-nourished Respiratory: chest is bilaterally symmetric, lungs clear to auscultation Cardiovascular: regular rate-rhythm, S1 and S2, other (no bruit in the right groin.) Gastrointestional: soft, audible bowel sounds; No spleenomegaly Extremities: normal range of motion, non-tender, normal inspection; No clubbing, No cyanosis; no lower extremity edema bilateral; No significant edema Neurologic/Psychiatric: no motor/sensory deficits, alert, normal mood/affect, oriented x 3, power is 5/5 both on sides Skin: normal color; No rash, No ulcerations Results/Procedures: Labs Laboratory Tests 02/21/20 20:30: Hemoglobin 9.9#L, Hematocrit 31L 02/22/20 03:52: Hemoglobin 9.8L, Hematocrit 30L, White Blood Count 8.3, Red Blood Count 3.21L, M aicha Corpuscular Volume 94, Mean Corpuscular Hemoglobin 31, Mean Corpuscular Hemoglobin Concent 33, Red Cell Distribution Width 14.1, Platelet Count 198, Mean Platelet Volume 9.6, Sodium Level 140, Potassium Level 3.8, Chloride Level 112H, Carbon Dioxide Level 18L, Anion Gap 10, Blood Urea Nitrogen 11, Creatinine 0.76, Estimat Glomerular Filtration Rate > 60, BUN/Creatinine Ratio 14, Glucose Level 93, Calcium Level 8.0L, Troponin I 2.667*H A/P: Assessment/Dx: Non-STEMI, Hyperlipidemia Plan: Non-STEMI: Aspirin, Brilinta, statin, . Coronary angiography showed severe RCA stenosis with significant thrombus burden. Status post drug-eluting stent. Normal right groin. Can be discharged today to follow-up in one to 2 weeks. Continue dual antiplatelet therapy and statin. We'll start low-dose beta manjinder and DEDRA inhibitor. Echocardiogram showed normal LV function. Hemodilution anemia. Hyperlipidemia: High-dose statin. Thank you for your consultation. Please call me if you have any questions. Devon Lopez MD, FACP, FACC, FSCAI, FHRS, CCDS Interventional Cardiology Cardiac Electrophysiology Vascular Medicine and Endovascular Interventions Clinical Quality Measures AMI/AHF: ASA po Prior to arrival: Hank Morin MD February 22, 2020 19:09
== END 2020-02-22 14:10 | disposition home or self-care (01) | DRG 247 ==
LOC: EDUNIT# 07:58 → ER 07:59 → 4TH 09:36 → OBSVTOIN 10:12 → ICU 13:27
PROVIDERS: ADMIT Internal Medicine; ATTEND Internal Medicine
PROC: 027034Z Dilation of Coronary Artery, One Artery with Drug-eluting Intraluminal Device, Percutaneous Approach (ICD-10-PCS; principal; 2020-02-21)
PROC: 4A023N7 Measurement of Cardiac Sampling and Pressure, Left Heart, Percutaneous Approach (ICD-10-PCS; 2020-02-21)
PROC: B2111ZZ Fluoroscopy of Multiple Coronary Arteries using Low Osmolar Contrast (ICD-10-PCS; 2020-02-21)
PROC: B2151ZZ Fluoroscopy of Left Heart using Low Osmolar Contrast (ICD-10-PCS; 2020-02-21)
DX: I21.4 Non-ST elevation (NSTEMI) myocardial infarction (principal); I25.10 Atherosclerotic heart disease of native coronary artery without angina pectoris; E78.5 Hyperlipidemia, unspecified; D64.9 Anemia, unspecified
CPT/HCPCS: 36140; 36415; 71045; 80048; 80053; 80061; 83735; 83874; 84484; 85014; 85018; 85025; 85027; 85049; 85347; 85610; 85730; 93005; 93041; 93306; 93458

== ENCOUNTER 2020-02-25 15:40 | Emergency (ER) | payer BC ==
[~2020-02-25] VITALS: Ht 167.7 cm; Wt 77.1 kg
[~2020-02-25 15:40] MED LIST: ACET-2267 PO; ASPI-983 PO; ATOR80TA64 PO; HYDR-3781; LISI-556 PO; METH4TAB10; METO50TA15 PO; NAPR220C11 PO; TICA90TA PO
[2020-02-25] MEDS ORDERED: LACTATED RINGERS 1,000 ML IV ONE (16:12)
[2020-02-25] MEDS ORDERED: ACETAMINOPHEN 500 MG TAB (TYLENOL) PO STA (16:12)
[2020-02-25 16:35] LABS: BASOPHILS % (AUTO) 0 % (0-10); EOSINOPHILS % (AUTO) 0 % (0-10); HEMATOCRIT 32 % (35-52); HEMOGLOBIN 10.5 G/DL (11.5-16.0); LYMPHOCYTES # (AUTO) 0.9 X 10^3 (1.0-4.0); LYMPHOCYTES % (AUTO) 8 % (12-44); MEAN CORPUSCULAR HEMOGLOBIN 30 PG (25-34); MEAN CORPUSCULAR HGB CONC 33 G/DL (32-36); MEAN CORPUSCULAR VOLUME 92 FL (80-99); MEAN PLATELET VOLUME 9.5 FL (7.4-10.4); MONOCYTES % (AUTO) 9 % (0-12); NEUTROPHILS # (AUTO) 9.1 X 10^3 (1.8-7.8); NEUTROPHILS % (AUTO) 83 % (42-75); PLATELET COUNT 306 10^3/uL (130-400)
--- NOTE | 2020-02-25 16:35 | ED General ---
General Chief Complaint: Dizziness/Syncope Stated Complaint: HEADACHE,LIGHT HEADED Nursing Triage Note: PT AMBULATE TO ROOM 03 WITH C/O DIZZINESS. PT STATES SHE HAD A STENT PLACED ON 02/20 AFTER A HEART ATTACK ON 02/19. PT STATES SHE "DOESN'T FEEL RIGHT". PT REPORTS SHE WAS TOLD BY THE RN AT DR COMBS'S OFFICE TO GO GET HER URINE CHECKED FOR POSSIBLE UTI. PT STATES SHE WAS TOLD TO GO TO HER PCP AND THAT SINCE SHE DOES NOT HAVE A PCP THAT SHE CAME TO ED INSTEAD SINCE "HER RECORDS WOULD BE HERE." PT DENIES BURNING OR PAINFUL URINATION. PT HAS NOT OTHER C/O. Nursing Sepsis Screen: No Definite Risk Source of Information: Patient Exam Limitations: No Limitations History of Present Illness Date Seen by Provider: February 25, 2020 Time Seen by Provider: 16:02 Initial Comments Here with report of dizzy and not feeling right. She had stents placed this weekend emergently due to chest pain and coronary artery blockage. Has been home and done okay over the past few days but today was not feeling well. 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 She does not have one so she presented here. Denies cough, shortness breath, chest pain, rating problems, fever or chills or dysuria. She was noted to have fever here of 38.3 Celsius. She did not know that she's had that. States that she just overall doesn't feel well. Timing/Duration: 12-24 Hours Severity: Moderate Modifying Factors: improves with Rest Associated Systoms: No Chest Pain, No Cough; Fever/Chills; No Headaches, No Nausea/Vomiting, No Shortness of Air, No Weakness Allergies and Home Medications Allergies Coded Allergies: tramadol (Verified Adverse Reaction, Unknown, nausea, 02/20/20) Home Medications Acetaminophen 500 Mg Tablet, 1,000 MG PO Q8H PRN for PAIN-MILD (1-4), (Reported) Aspirin 81 Mg Tablet., 81 MG PO DAILY Prescribed by: IRENA MCKINNEY on 02/22/20 110 Atorvastatin Calcium 80 Mg Tablet, 80 MG PO DAILY Prescribed by: IRENA MCKINNEY on 02/22/20 1106 Lisinopril 5 Mg Tablet, 5 MG PO DAILY Prescribed by: IRENA MCKINNEY on 02/22/20 110 Metoprolol Tartrate 50 Mg Tablet, 50 MG PO BID Prescribed by: IRENA MCKINNEY on 02/22/20 1106 Ticagrelor 90 Mg Tablet, 90 MG PO BID Prescribed by: IRENA MCKINNEY on 02/22/20 1106 Patient Home Medication List Home Medication List Reviewed: Yes Review of Systems Review of Systems Constitutional: see HPI; No chills, No diaphoresis; fever EENTM: no symptoms reported Respiratory: No cough, No short of breath Cardiovascular: No chest pain, No edema; Hx of Intervention Gastrointestinal: No abdominal pain, No diarrhea, No vomiting Genitourinary: No dysuria, No frequency : No Musculoskeletal: no symptoms reported Skin: no symptoms reported Psychiatric/Neurological: See HPI Hematologic/Lymphatic: No Symptoms Reported All Other Systems Reviewed Negative Unless Noted: Yes Past Ywzcvnw-Vhtgfq-Axydfv Hx Past Med/Social Hx: Reviewed Nursing Past Med/Soc Hx Patient Social History Alcohol Use: Denies Use Recreational Drug Use: No Smoking Status: Never a Smoker Recent Foreign Travel: No Contact w/Someone Who Travel: No Recent Infectious Disease Expo: No Physical Abuse: No Sexual Abuse: No Mistreated: No Fear: No Immunizations Up To Date Tetanus Booster (TDap): Unknown Past Medical History Surgeries: Yes (COLONOSCOPY, R HIP REPLACEMENT, RIGHT FEMORAL STENT) Abdominal, Tonsillectomy Respiratory: No Cardiac: Yes (STENT PLACED 02/21/20) Heart Attack Neurological: No Reproductive Disorders: No Sexually Transmitted Disease: No HIV/AIDS: No Genitourinary: No Gastrointestinal: No Musculoskeletal: No Endocrine: No HEENT: No Cancer: No Psychosocial: No Integumentary: No Blood Disorders: No Adverse Reaction/Blood Tranf: No Family Medical History Reviewed Nursing Family Hx Patient reports no known family medical history. Heart Disease, Cancer Physical Exam-Suspected Sepsis Physical Exam Vital Signs Vital Signs - First Documented 02/25/20 15:51 Temp 38.3 Pulse 96 Resp 18 B/P (MAP) 135/80 (98) O2 Delivery Room Air Capillary Refill : Less Than 3 Seconds Blood Pressure Mean: 98 Height, Weight, BMI Height: 5'6" Weight: 160lbs. oz. 72.597341na; 27.00 BMI Method: General Appearance: No Apparent Distress, WD/WN HEENT: PERRL/EOMI, Pharynx Normal Neck: Non Tender, Supple Respiratory: Lungs Clear, Normal Breath Sounds Cardiovascular: Regular Rate, Rhythm, No Murmur Gastrointestinal: Non Tender, Soft Back: Normal Inspection, No CVA Tenderness, No Vertebral Tenderness Extremity: Normal Range of Motion, Non Tender, No Calf Tenderness, No Pedal Edema Neurologic/Psychiatric: Alert, Oriented x3 Skin: normal color, warm/dry Focused Exam Lactate Level 02/25/20 16:12: Lactic Acid Level 0.78 Lactic Acid Level Laboratory Tests Test 02/25/20 16:12 Lactic Acid Level 0.78 MMOL/L (0.50-2.00) Progress/Results/Core Measures Suspected Sepsis Recent Fever Within 48 Hours: Yes Infection Criteria Present: None New/Unexplained Altered Menta: No Sepsis Screen: No Definite Risk SIRS Temperature: Pulse: 96 Respiratory Rate: 18 Laboratory Tests 02/25/20 16:12: White Blood Count 11.0 Blood Pressure 135 /80 Mean: 98 02/25/20 16:12: Lactic Acid Level 0.78 Laboratory Tests 02/25/20 16:12: Creatinine 0.80, Platelet Count 306, Total Bilirubin 1.0 Results/Orders Lab Results Laboratory Tests Test 02/25/20 16:12 02/25/20 16:19 Range/Units White Blood Count 11.0 4.3-11.0 10^3/uL Red Blood Count 3.48 L 4.35-5.85 10^6/uL Hemoglobin 10.5 L 11.5-16.0 G/DL Hematocrit 32 L 35-52 % Mean Corpuscular Volume 92 80-99 FL Mean Corpuscular Hemoglobin 30 25-34 PG Mean Corpuscular Hemoglobin Concent 33 32-36 G/DL Red Cell Distribution Width 14.0 10.0-14.5 % Platelet Count 306 130-400 10^3/uL Mean Platelet Volume 9.5 7.4-10.4 FL Neutrophils (%) (Auto) 83 H 42-75 % Lymphocytes (%) (Auto) 8 L 12-44 % Monocytes (%) (Auto) 9 0-12 % Eosinophils (%) (Auto) 0 0-10 % Basophils (%) (Auto) 0 0-10 % Neutrophils # (Auto) 9.1 H 1.8-7.8 X 10^3 Lymphocytes # (Auto) 0.9 L 1.0-4.0 X 10^3 Monocytes # (Auto) 1.0 0.0-1.0 X 10^3 Eosinophils # (Auto) 0.0 0.0-0.3 10^3/uL Basophils # (Auto) 0.0 0.0-0.1 10^3/uL Sodium Level 138 135-145 MMOL/L Potassium Level 3.6 3.6-5.0 MMOL/L Chloride Level 102 98-107 MMOL/L Carbon Dioxide Level 24 21-32 MMOL/L Anion Gap 12 5-14 MMOL/L Blood Urea Nitrogen 11 7-18 MG/DL Creatinine 0.80 0.60-1.30 MG/DL Estimat Glomerular Filtration Rate > 60 BUN/Creatinine Ratio 14 Glucose Level 104 70-105 MG/DL Lactic Acid Level 0.78 0.50-2.00 MMOL/L Calcium Level 9.2 8.5-10.1 MG/DL Corrected Calcium 9.0 8.5-10.1 MG/DL Total Bilirubin 1.0 0.1-1.0 MG/DL Aspartate Amino Transf (AST/SGOT) 20 5-34 U/L Alanine Aminotransferase (ALT/SGPT) 26 0-55 U/L Alkaline Phosphatase 62 40-136 U/L C-Reactive Protein High Sensitivity 4.31 H 0.00-0.50 MG/DL Total Protein 8.3 H 6.4-8.2 GM/DL Albumin 4.3 3.2-4.5 GM/DL Urine Color YELLOW Urine Clarity CLEAR Urine pH 6.0 5-9 Urine Specific [place] 1.010 L 1.016-1.022 Urine Protein NEGATIVE NEGATIVE Urine Glucose (UA) NEGATIVE NEGATIVE Urine Ketones NEGATIVE NEGATIVE Urine Nitrite NEGATIVE NEGATIVE Urine Bilirubin NEGATIVE NEGATIVE Urine Urobilinogen 1.0 < = 1.0 MG/DL Urine Leukocyte Esterase NEGATIVE NEGATIVE Urine RBC (Auto) NEGATIVE NEGATIVE Urine RBC NONE /HPF Urine WBC NONE /HPF Urine Squamous Epithelial Cells NONE /HPF Urine Crystals NONE /LPF Urine Bacteria NEGATIVE /HPF Urine Casts NONE /LPF Urine Mucus NEGATIVE /LPF Urine Culture Indicated NO My Orders Orders - SAMANTHA GIRON MD Hs C Reactive Protein (02/25/20 16:12) Lactic Acid Analyzer (02/25/20 16:12) Blood Culture (02/25/20 16:12) Ed Iv/Invasive Line Start (02/25/20 16:12) Lactated Ringers (Lr 1000 Ml Iv Solution (02/25/20 16:12) Acetaminophen Tablet (Tylenol Tablet) (02/25/20 16:12) Chest 1 View, Ap/Pa Only (02/25/20 16:12) Medications Given in ED Current Medications Medications Dose Ordered Sig/Josh Route Start Time Stop Time Status Last Admin Dose Admin Lactated Ringer's 1,000 ml @ 0 mls/hr Q0M ONCE IV 02/25/20 16:12 02/25/20 16:19 DC 02/25/20 16:26 999 MLS/HR Vital Signs/I&O 02/25/20 02/25/20 15:51 16:27 Temp 38.3 38.3 Pulse 96 Resp 18 B/P (MAP) 135/80 (98) O2 Delivery Room Air Capillary Refill : Less Than 3 Seconds Blood Pressure Mean: 98 Progress Note : Progress Note Seen and evaluated. IV, labs, UA, CT head, chest x-ray, blood cultures and lactic acid ordered. LR 1 L bolus. Acetaminophen 1 g by mouth. Monitor patient. 1745: Patient feels much better and states she actually feels normal. Fluids are almost complete. Fever has resolved. No laboratory indication of significant abnormality. Chest x-ray and CT negative. This may be related to dehydration. Discharged home with return precautions. Patient verbalize understanding instructions and agreement with plan. Diagnostic Imaging Diagonstic Imaging: Xray Plain Films/CT/US/NM/MRI: chest Comments [facility] [place], [place] NAME: MINA NEGRON [facility] REC#: [id number] PT STATUS: REG ER : 1955 PHYSICIAN: SAMANTHA GIRON MD ADMIT DATE: 02/25/20/ER Draft Date of Exam:02/25/20 CHEST 1 VIEW, AP/PA ONLY INDICATION: Dizziness. COMPARISON: 02/20/2020. FINDINGS: Single frontal view of the chest demonstrates normal heart size and pulmonary vascularity. The lungs are well aerated and clear. No large pleural effusion or pneumothorax is seen. The visualized osseous structures show no acute abnormalities. Note is made of calcified aortic atherosclerosis. IMPRESSION: 1. No acute cardiopulmonary process. Dictated on workstation # [id number] Dict: 02/25/20 1636 Trans: 02/25/20 1638 [id number] Interpreted by: SUMMER LEMON MD Electronically signed by: Travis Imaging: CT Plain Films/CT/US/NM/MRI: head Comments [facility] [address], [place] NAME: MINA NEGRON [facility] REC#: [id number] PT STATUS: REG ER : 1955 PHYSICIAN: DESTINI HILARIO FIRER LOW PRESSURE ADMIT DATE: 02/25/20/ER Draft Date of Exam:02/25/20 CT HEAD WO INDICATION: Headache and dizziness. Fever. TECHNIQUE: Routine noncontrast enhanced axial images were obtained from the skull base to the vertex. Auto Exposure Controls were utilized during the CT exam to meet ALARA standards for radiation dose reduction COMPARISON: None. FINDINGS: The ventricles and cortical sulci are age-appropriate. There is no midline shift or mass effect. No acute intra-axial hemorrhage is seen. There are no abnormal areas of increased or decreased density to suggest acute hemorrhage or edema. No extra-axial masses or collections are present. The bony calvarium is intact. The visualized paranasal sinuses are unremarkable. The mastoid air cells are clear. IMPRESSION: No acute intracranial abnormality. No CT evidence of mass, acute infarct, or intracranial hemorrhage. Dictated on workstation # [id number] Dict: 02/25/20 1635 Trans: 02/25/20 1638 [id number] Interpreted by: SUMMER LEMON MD Electronically signed by: Departure Impression Primary Impression: Dehydration fever Disposition: 01 HOME, SELF-CARE Condition: Improved Departure-Patient Inst. Decision time for Depature: 17:47 Referrals: NO,LOCAL PHYSICIAN (PCP/Family) Primary Care Physician Patient Instructions: Dehydration, Adult (DC), Fever, Adult (DC) Add. Discharge Instructions: All discharge instructions reviewed with patient and/or family. Voiced understanding. You may continue Tylenol/acetaminophen 1000 mg every 6-8 hours as needed for fever or pain. Drink an adequate amount of fluids and eat a normal diet. Continue home medicines as previously prescribed. Return for worse pain, fever, vomiting, weakness, breathing problems, vomiting, problems going to the bathroom or other concerns as needed. We have found no source for the fever and it may be related to dehydration. If you start to develop other symptoms, please return for recheck and further evaluation. SAMANTHA GIRON MD February 25, 2020 16:35
--- NOTE | 2020-02-25 16:38 | Diagnostic Imaging Report ---
INDICATION: Headache and dizziness. Fever. TECHNIQUE: Routine noncontrast enhanced axial images were obtained from the skull base to the vertex. Auto Exposure Controls were utilized during the CT exam to meet ALARA standards for radiation dose reduction COMPARISON: None. FINDINGS: The ventricles and cortical sulci are age-appropriate. There is no midline shift or mass effect. No acute intra-axial hemorrhage is seen. There are no abnormal areas of increased or decreased density to suggest acute hemorrhage or edema. No extra-axial masses or collections are present. The bony calvarium is intact. The visualized paranasal sinuses are unremarkable. The mastoid air cells are clear. IMPRESSION: No acute intracranial abnormality. No CT evidence of mass, acute infarct, or intracranial hemorrhage. Dictated by: Dictated on workstation # [id number]
--- NOTE | 2020-02-25 16:39 | Diagnostic Imaging Report ---
INDICATION: Dizziness. COMPARISON: 02/20/2020. FINDINGS: Single frontal view of the chest demonstrates normal heart size and pulmonary vascularity. The lungs are well aerated and clear. No large pleural effusion or pneumothorax is seen. The visualized osseous structures show no acute abnormalities. Note is made of calcified aortic atherosclerosis. IMPRESSION: 1. No acute cardiopulmonary process. Dictated by: Dictated on workstation # [id number]
[2020-02-25 16:53] LABS: ALBUMIN 4.3 GM/DL (3.2-4.5); CHLORIDE 102 MMOL/L (98-107); POTASSIUM 3.6 MMOL/L (3.6-5.0); SODIUM 138 MMOL/L (135-145)
[2020-02-25 16:55] LABS: CALCIUM 9.2 MG/DL (8.5-10.1)
[2020-02-25 16:56] LABS: GLUCOSE 104 MG/DL (70-105); TOTAL PROTEIN 8.3 GM/DL (6.4-8.2)
[2020-02-25 16:57] LABS: CARBON DIOXIDE 24 MMOL/L (21-32)
[2020-02-25 16:59] LABS: ALKALINE PHOSPHATASE 62 U/L (40-136)
[2020-02-25 17:00] LABS: GFR ESTIMATED > 60
[2020-02-25 17:01] LABS: BUN/CREATININE RATIO 14
[2020-02-25 17:02] LABS: ALANINE AMINOTRANSFERASE 26 U/L (0-55)
[2020-02-25 17:05] LABS: BILIRUBIN,URINE NEGATIVE (NEGATIVE); CLARITY,URINE CLEAR; COLOR,URINE YELLOW; GLUCOSE, URINE (UA) NEGATIVE (NEGATIVE); KETONES,URINE NEGATIVE (NEGATIVE); LEUKOCYTE ESTERASE ,URINE NEGATIVE (NEGATIVE); NITRITE,URINE NEGATIVE (NEGATIVE); PROTEIN,URINE NEGATIVE (NEGATIVE)
[2020-02-25 17:19] LABS: BACTERIA,URINE NEGATIVE /HPF
[2020-02-25 18:03] VITALS: BP 115/55
== END 2020-02-25 18:06 | disposition home or self-care (01) ==
LOC: EDUNIT# 15:40 → ER 15:42
DX: E86.0 Dehydration (principal); R50.9 Fever, unspecified; R42 Dizziness and giddiness; I25.2 Old myocardial infarction; Z95.5 Presence of coronary angioplasty implant and graft; Z88.5 Allergy status to narcotic agent; Z79.82 Long term (current) use of aspirin; Z79.899 Other long term (current) drug therapy; Z96.641 Presence of right artificial hip joint
CPT/HCPCS: 36415; 70450; 71045; 80053; 81000; 83605; 85025; 86141; 87040

== ENCOUNTER 2020-10-15 07:21 | Emergency (ER) | payer MEDICARE, OTHER ==
[~2020-10-15] VITALS: Ht 167.7 cm; Wt 78.0 kg
[~2020-10-15 07:21] MED LIST changes: +ASPI-1238 PO; -ASPI-983 PO
[2020-10-15] MEDS ORDERED: ONDANSETRON 4 MG/2 ML (SDV) Z0FRAN IVP ONE (07:45)
[2020-10-15] MEDS ORDERED: fentaNYL INJECTION 100 MCG/2 ML AMP IVP PRN (07:45)
[2020-10-15] MEDS ORDERED: NS IV 1000 ML 1,000 ML IV SCH (07:45)
--- NOTE | 2020-10-15 07:45 | NUR ---
Pt taken to restroom for urine sample. Pt exited restroom and reported forgetting to collect urine in sample cup.
[2020-10-15 07:46] LABS: BASOPHILS % (AUTO) 0 % (0-10); EOSINOPHILS % (AUTO) 0 % (0-10); HEMATOCRIT 40 % (35-52); HEMOGLOBIN 13.4 g/dL (11.5-16.0); LYMPHOCYTES # (AUTO) 1.4 10^3/uL (1.0-4.0); LYMPHOCYTES % (AUTO) 15 % (12-44); MEAN CORPUSCULAR HEMOGLOBIN 31 pg (25-34); MEAN CORPUSCULAR HGB CONC 34 g/dL (32-36); MEAN CORPUSCULAR VOLUME 90 fL (80-99); MEAN PLATELET VOLUME 9.5 fL (9.0-12.2); MONOCYTES # (AUTO) 0.6 10^3/uL (0.0-1.0); MONOCYTES % (AUTO) 6 % (0-12); NEUTROPHILS # (AUTO) 7.2 10^3/uL (1.8-7.8); NEUTROPHILS % (AUTO) 79 % (42-75); PLATELET COUNT 248 10^3/uL (130-400); WHITE BLOOD COUNT 9.1 10^3/uL (4.3-11.0)
[2020-10-15 07:54] LABS: ALBUMIN 4.6 GM/DL (3.2-4.5); CHLORIDE 100 MMOL/L (98-107); POTASSIUM 3.6 MMOL/L (3.6-5.0); SODIUM 136 MMOL/L (135-145)
[2020-10-15 07:56] LABS: CALCIUM 9.9 MG/DL (8.5-10.1)
[2020-10-15 07:57] LABS: GLUCOSE 110 MG/DL (70-105); TOTAL PROTEIN 8.7 GM/DL (6.4-8.2)
[2020-10-15 07:58] LABS: CARBON DIOXIDE 22 MMOL/L (21-32)
[2020-10-15 07:59] LABS: BILIRUBIN,TOTAL 0.4 MG/DL (0.1-1.0)
[2020-10-15 08:00] LABS: ALKALINE PHOSPHATASE 89 U/L (40-136)
[2020-10-15 08:01] LABS: CREATININE SERUM 0.91 MG/DL (0.60-1.30); GFR ESTIMATED > 60
[2020-10-15 08:02] LABS: BUN/CREATININE RATIO 16
[2020-10-15 08:03] LABS: ALANINE AMINOTRANSFERASE 19 U/L (0-55)
[2020-10-15 08:04] LABS: LIPASE 66 U/L (8-78)
--- NOTE | 2020-10-15 08:10 | ED Abdominal Pain ---
General Chief Complaint: Abdominal/GI Problems Stated Complaint: LOWER ABD PAIN Nursing Triage Note: Pt ambulatory to ED. Pt c/o lower abdominal pain that began last night around 2099. Pt reports, "This happens when I get uptight." Pt asked if pt is experiencing anxiety regarding anything. Pt unable to state anything specific. When asked to describe pain, pt reports, "It just feels like a stomach ache. Pt reports last BM last night. Sepsis Screen: No Definite Risk Source of Information: Patient Exam Limitations: No Limitations History of Present Illness Date Seen by Provider: Oct 15, 2020 Time Seen by Provider: 07:31 Initial Comments Here with report of mid to lower abdominal pain that she states is cramping and goes to just her back. Onset at 8 PM last night and has persisted since. States pain 8 out of 10. Has had pain similar to this previous but usually goes away. This time it has been persistent. Denies blood in her urine or stools. Denies dysuria or diarrhea. Denies fever chills or upper respiratory symptoms. Wonders if this may be stress or constipation but had normal bowel movement last night and a small bowel movement this morning. Does admit to being under lots of stress. Timing/Duration: 12 Hours Severity/Quality: Moderate, Cramping Location: Periumbilical, Suprapubic Radiation: Back Activities at Onset: Emotional Stress Modifying Factors: Improves With Other (No aggravating or relieving factors) Associated Symptoms: Back Pain; No Chest Pain, No Fever/Chills, No Nausea/Vomiting, No Shortness of Air, No Swelling/Mass in Abdomen, No Weakness Allergies and Home Medications Allergies Coded Allergies: tramadol (Verified Adverse Reaction, Unknown, nausea, 02/20/20) Home Medications Acetaminophen 500 Mg Tablet, 1,000 MG PO Q8H PRN for PAIN-MILD (1-4), (Reported) Aspirin 81 Mg Tablet.dr, 81 MG PO DAILY Prescribed by: IRENA MCKINNEY on 02/22/201105 Atorvastatin Calcium 80 Mg Tablet, 80 MG PO DAILY Prescribed by: IRENA MCKINNEY on 02/22/20 110 Lisinopril 5 Mg Tablet, 5 MG PO DAILY Prescribed by: IRENA MCKINNEY on 02/22/20 110 Metoprolol Tartrate 50 Mg Tablet, 50 MG PO BID Prescribed by: IRENA MCKINNEY on 02/22/20 1106 Ticagrelor 90 Mg Tablet, 90 MG PO BID Prescribed by: IRENA MCKINNEY on 02/22/20 1106 Patient Home Medication List Home Medication List Reviewed: Yes Review of Systems Review of Systems Constitutional: see HPI; No chills, No fever EENTM: No Nose Congestion, No Throat Pain Respiratory: Denies Cough, Denies Shortness of Air Cardiovascular: Denies Chest Pain, Denies Edema Gastrointestinal: Abdomen Distended; Denies Nausea, Denies Vomiting Genitourinary: No Symptoms Reported Musculoskeletal: back pain; No neck pain Skin: no symptoms reported Psychiatric/Neurological: Anxiety; Denies Weakness All Other Systems Reviewed Negative Unless Noted: Yes Past Gzfsbed-Uiccun-Idlpyo Hx Past Med/Social Hx: Reviewed Nursing Past Med/Soc Hx Patient Social History Alcohol Use: Denies Use Recreational Drug Use: No 2nd Hand Smoke Exposure: No Recent Foreign Travel: No Contact w/Someone Who Travel: No Recent Infectious Disease Expo: No Immunizations Up To Date Tetanus Booster (TDap): Unknown Past Medical History Surgeries: Yes (COLONOSCOPY, R HIP REPLACEMENT, RIGHT FEMORAL STENT) Abdominal, Tonsillectomy Respiratory: No Cardiac: Yes (STENT PLACED 02/21/20) Heart Attack Neurological: No Reproductive Disorders: No Sexually Transmitted Disease: No HIV/AIDS: No Genitourinary: No Gastrointestinal: No Musculoskeletal: No Endocrine: No HEENT: No Cancer: No Psychosocial: No Integumentary: No Blood Disorders: No Adverse Reaction/Blood Tranf: No Family Medical History Reviewed Nursing Family Hx Patient reports no known family medical history. Heart Disease, Cancer Physical Exam Vital Signs Vital Signs - First Documented 10/15/20 07:23 Temp 36.8 Pulse 98 Resp 14 B/P (MAP) 163/74 (103) Pulse Ox 97 O2 Delivery Room Air Capillary Refill : Less Than 3 Seconds Height/Weight/BMI Height: 5'6" Weight: 160lbs. oz. 72.829968vx; 27.00 BMI Method: General Appearance: WD/WN, no apparent distress HEENT: PERRL/EOMI Neck: full range of motion, supple Respiratory: lungs clear, normal breath sounds Cardiovascular: regular rate, rhythm, no murmur Gastrointestinal: normal bowel sounds, non tender, soft; No guarding, No rebound Extremities: non-tender, normal inspection Back: normal inspection, no CVA tenderness, no vertebral tenderness Neurologic/Psychiatric: alert, oriented x 3 Skin: normal color, warm/dry Progress/Results/Core Measures Results/Orders Lab Results Laboratory Tests Test 10/15/20 07:38 10/15/20 08:35 Range/Units White Blood Count 9.1 4.3-11.0 10^3/uL Red Blood Count 4.38 3.80-5.11 10^6/uL Hemoglobin 13.4 11.5-16.0 g/dL Hematocrit 40 35-52 % Mean Corpuscular Volume 90 80-99 fL Mean Corpuscular Hemoglobin 31 25-34 pg Mean Corpuscular Hemoglobin Concent 34 32-36 g/dL Red Cell Distribution Width 12.3 10.0-14.5 % Platelet Count 248 130-400 10^3/uL Mean Platelet Volume 9.5 9.0-12.2 fL Immature Granulocyte % (Auto) 0 % Neutrophils (%) (Auto) 79 H 42-75 % Lymphocytes (%) (Auto) 15 12-44 % Monocytes (%) (Auto) 6 0-12 % Eosinophils (%) (Auto) 0 0-10 % Basophils (%) (Auto) 0 0-10 % Neutrophils # (Auto) 7.2 1.8-7.8 10^3/uL Lymphocytes # (Auto) 1.4 1.0-4.0 10^3/uL Monocytes # (Auto) 0.6 0.0-1.0 10^3/uL Eosinophils # (Auto) 0.0 0.0-0.3 10^3/uL Basophils # (Auto) 0.0 0.0-0.1 10^3/uL Immature Granulocyte # (Auto) 0.0 0.0-0.1 10^3/uL Sodium Level 136 135-145 MMOL/L Potassium Level 3.6 3.6-5.0 MMOL/L Chloride Level 100 98-107 MMOL/L Carbon Dioxide Level 22 21-32 MMOL/L Anion Gap 14 5-14 MMOL/L Blood Urea Nitrogen 15 7-18 MG/DL Creatinine 0.91 0.60-1.30 MG/DL Estimat Glomerular Filtration Rate > 60 BUN/Creatinine Ratio 16 Glucose Level 110 H 70-105 MG/DL Calcium Level 9.9 8.5-10.1 MG/DL Corrected Calcium 8.5-10.1 MG/DL Total Bilirubin 0.4 0.1-1.0 MG/DL Aspartate Amino Transf (AST/SGOT) 16 5-34 U/L Alanine Aminotransferase (ALT/SGPT) 19 0-55 U/L Alkaline Phosphatase 89 40-136 U/L C-Reactive Protein High Sensitivity 0.30 0.00-0.50 MG/DL Total Protein 8.7 H 6.4-8.2 GM/DL Albumin 4.6 H 3.2-4.5 GM/DL Lipase 66 8-78 U/L Urine Color YELLOW Urine Clarity CLEAR Urine pH 6.5 5-9 Urine Specific [place] 1.010 L 1.016-1.022 Urine Protein NEGATIVE NEGATIVE Urine Glucose (UA) NEGATIVE NEGATIVE Urine Ketones NEGATIVE NEGATIVE Urine Nitrite NEGATIVE NEGATIVE Urine Bilirubin NEGATIVE NEGATIVE Urine Urobilinogen 0.2 < = 1.0 MG/DL Urine Leukocyte Esterase NEGATIVE NEGATIVE Urine RBC (Auto) NEGATIVE NEGATIVE Urine RBC NONE /HPF Urine WBC NONE /HPF Urine Squamous Epithelial Cells RARE /HPF Urine Crystals NONE /LPF Urine Bacteria NEGATIVE /HPF Urine Casts NONE /LPF Urine Mucus NEGATIVE /LPF Urine Culture Indicated NO My Orders Orders - SAMANTHA GIRON MD Fentanyl Injection (Sublimaze Injection (10/15/20 07:45) Ondansetron Injection (Zofran Injectio (10/15/20 07:45) Ed Iv/Invasive Line Start (10/15/20 07:33) Ns Iv 1000 Ml (Sodium Chloride 0.9%) (10/15/20 07:45) Cbc With Automated Diff (10/15/20 07:41) Comprehensive Metabolic Panel (10/15/20 07:41) Hs C Reactive Protein (10/15/20 07:41) Lipase (10/15/20 07:41) Ua Culture If Indicated (10/15/20 07:41) Fentanyl Injection (Sublimaze Injection (10/15/20 09:09) Ketorolac Injection (Toradol Injection) (10/15/20 09:09) Ct Abdomen/Pelvis W (10/15/20 09:09) Iohexol Injection (Omnipaque 350 Mg/Ml 1 (10/15/20 09:15) Received Contrast (Hold Metformin- Contr (10/15/20 09:15) Ns (Ivpb) (Sodium Chloride 0.9% Ivpb Bag (10/15/20 09:15) Medications Given in ED Current Medications Medications Dose Ordered Sig/Josh Route Start Time Stop Time Status Last Admin Dose Admin Fentanyl Citrate 25 mcg ONCE PRN IVP 10/15/20 07:45 10/15/20 07:46 25 MCG Iohexol 100 ml ONCE ONCE IV 10/15/20 09:15 10/15/20 09:25 DC 10/15/20 09:44 100 ML Ondansetron HCl 4 mg ONCE ONCE IVP 10/15/20 07:45 10/15/20 07:46 DC 10/15/20 07:44 4 MG Sodium Chloride 100 ml ONCE ONCE IV 10/15/20 09:15 10/15/20 09:25 DC 10/15/20 09:44 100 ML Vital Signs/I&O 10/15/20 07:23 Temp 36.8 Pulse 98 Resp 14 B/P (MAP) 163/74 (103) Pulse Ox 97 O2 Delivery Room Air Blood Pressure Mean: 103 Progress Progress Note : Progress Note Seen and evaluated. IV, labs, UA, normal saline 1 L bolus, Zofran 4 mg IV and fentanyl 25 mcg IV ordered. Monitor patient. 0800: Patient did provide very small UA but forgot to urinate in the cup until the very last moment. We will try to get another sample to provide adequate volume. Monitor patient. 924: Labs look okay. Patient still in a bit of pain. Repeat dosing of medicine with fentanyl 50 mcg IV and Toradol 15 mg IV. We will get CT abdomen and pelvis with contrast at this point given her persistence of pain. This was discussed with the patient who agrees. 1032: I did discuss the findings with the patient. There is question of gallbladder issues although patient has no tenderness in the right upper quadrant and labs do not indicate cholecystitis. Patient is pain-free currently and no right upper quadrant pain. I did discuss the case with Dr. Chawla. We will have her follow-up in his office as an outpatient and patient agreed to that as well. Discharged home with return precautions. Patient verbalized understanding of instructions and agreement with plan. Diagnostic Imaging Diagonstic Imaging: CT Plain Films/CT/US/NM/MRI: abdomen, pelvis Comments [facility] [place], [place] NAME: MINA NEGRON [facility] REC#: [id number] PT STATUS: REG ER : 1955 PHYSICIAN: SAMANTHA GIRON MD ADMIT DATE: 10/15/20/ER Draft Date of Exam:10/15/20 CT ABDOMEN/PELVIS W PROCEDURE: CT abdomen and pelvis with contrast. TECHNIQUE: Multiple contiguous axial images were obtained through the abdomen and pelvis after administration of intravenous contrast. Auto Exposure Controls were utilized during the CT exam to meet ALARA standards for radiation dose reduction. All CT scans use one or more of the following dose optimizing techniques: automated exposure control, MA and/or KvP adjustment based on patient size and exam type or iterative reconstruction. INDICATION: Low abdominal pelvic pain radiating down the back. EXAMINATION: CT abdomen pelvis with contrast 10/15/2020 FINDINGS: Lung bases clear. There is fatty infiltration throughout the liver. The spleen is unremarkable. The gallbladder wall is thickened. There may be pericholecystic fluid. Vague hyperdensities possibly tiny stones. Sonography could better characterize if clinically indicated. There is a larger stone near the gallbladder neck. The pancreas and adrenal glands unremarkable. Cystic changes noted within the left kidney otherwise kidneys normal. There is a small hiatal hernia. Slightly prominent thick-walled small bowel loops seen throughout the mid abdomen especially in the left upper quadrant and left midabdomen. These findings could be due to a mild ileus versus enteritis. The colon unremarkable. Appendix is not seen but there is no surrounding inflammatory change about the right lower quadrant. There is no ascites or free air. There is atherosclerotic disease along the aorta. There is degenerative disease within the osseous structures with a scoliotic deformity of the spine. Postoperative change in the right hip incidentally noted. IMPRESSION: 1. Cholelithiasis with abnormal appearance to the gallbladder wall, pericholecystic fluid not excluded. Sonography could better characterize as clinically indicated. 2. Findings of possible enteritis correlate with symptoms. Other findings as above. Dictated on workstation # [id number] Dict: 10/15/20 0946 Trans: 10/15/20 1000 [facility] [id number] Interpreted by: JUAN MANUEL ZAZUETA MD Electronically signed by: Departure Impression Primary Impression: Lower abdominal pain Additional Impressions: Colitis Gallstones Disposition: 01 HOME, SELF-CARE Condition: Improved Departure-Patient Inst. Decision time for Depature: 10:37 Referrals: NO,LOCAL PHYSICIAN (PCP/Family) Primary Care Physician Patient Instructions: Severe Abdominal Pain, Adult (DC), Colitis, Gallstones Add. Discharge Instructions: All discharge instructions reviewed with patient and/or family. Voiced understanding. Clear liquid or light diet for the next 24 to 48 hours and then advance as tolerated. You may take Tylenol/acetaminophen 1000 mg every 6-8 hours as needed for pain. Call and make appointment with Dr. Chawla. Call his office on Sunday for appointment. You will need follow-up with the surgeon for further evaluation of the gallbladder and colon. You may take [id number] famotidine (Pepcid) 20 mg once or twice daily for the next week and then daily thereafter as needed for stomach upset. Return for worse pain, fever, vomiting, weakness, breathing problems or other concerns as needed. Copy Copies To 1: BONNIE CHAWLA TIMOTHY D MD Oct 15, 2020 08:10
[2020-10-15 08:53] LABS: BILIRUBIN,URINE NEGATIVE (NEGATIVE); CLARITY,URINE CLEAR; COLOR,URINE YELLOW; GLUCOSE, URINE (UA) NEGATIVE (NEGATIVE); KETONES,URINE NEGATIVE (NEGATIVE); LEUKOCYTE ESTERASE ,URINE NEGATIVE (NEGATIVE); NITRITE,URINE NEGATIVE (NEGATIVE); PH,URINE 6.5 (5-9); PROTEIN,URINE NEGATIVE (NEGATIVE)
[2020-10-15 09:01] LABS: BACTERIA,URINE NEGATIVE /HPF; SQUAMOUS EPITHELIAL CELL,UR RARE /HPF
[2020-10-15] MEDS ORDERED: fentaNYL INJECTION 100 MCG/2 ML AMP IVP STA (09:09)
[2020-10-15] MEDS ORDERED: KETOROLAC 30 MG/ML VIAL IVP STA (09:09)
[2020-10-15] MEDS ORDERED: NS 100 ML (IVPB) BAG IV ONE (09:15)
[2020-10-15] MEDS ORDERED: IOHEXOL 350 MG/ML 100 ML (OMNIPAQUE 350) VIAL IV ONE (09:15)
[2020-10-15] MEDS ORDERED: HOLD METFORMIN - RECEIVED CONTRAST 20 ML VIAL IV SCH (09:15)
--- NOTE | 2020-10-15 10:01 | Diagnostic Imaging Report ---
PROCEDURE: CT abdomen and pelvis with contrast. TECHNIQUE: Multiple contiguous axial images were obtained through the abdomen and pelvis after administration of intravenous contrast. Auto Exposure Controls were utilized during the CT exam to meet ALARA standards for radiation dose reduction. All CT scans use one or more of the following dose optimizing techniques: automated exposure control, MA and/or KvP adjustment based on patient size and exam type or iterative reconstruction. INDICATION: Low abdominal pelvic pain radiating down the back. EXAMINATION: CT abdomen pelvis with contrast 10/15/2020 FINDINGS: Lung bases clear. There is fatty infiltration throughout the liver. The spleen is unremarkable. The gallbladder wall is thickened. There may be pericholecystic fluid. Vague hyperdensities possibly tiny stones. Sonography could better characterize if clinically indicated. There is a larger stone near the gallbladder neck. The pancreas and adrenal glands unremarkable. Cystic changes noted within the left kidney otherwise kidneys normal. There is a small hiatal hernia. Slightly prominent thick-walled small bowel loops seen throughout the mid abdomen especially in the left upper quadrant and left midabdomen. These findings could be due to a mild ileus versus enteritis. The colon unremarkable. Appendix is not seen but there is no surrounding inflammatory change about the right lower quadrant. There is no ascites or free air. There is atherosclerotic disease along the aorta. There is degenerative disease within the osseous structures with a scoliotic deformity of the spine. Postoperative change in the right hip incidentally noted. IMPRESSION: 1. Cholelithiasis with abnormal appearance to the gallbladder wall, pericholecystic fluid not excluded. Sonography could better characterize as clinically indicated. 2. Findings of possible enteritis correlate with symptoms. Other findings as above. Dictated by: Dictated on workstation # [id number]
[2020-10-15 10:46] VITALS: BP 116/59
== END 2020-10-15 10:48 | disposition home or self-care (01) ==
LOC: EDUNIT# 07:21 → ER 07:23
DX: R10.30 Lower abdominal pain, unspecified (principal); K52.9 Noninfective gastroenteritis and colitis, unspecified; K80.80 Other cholelithiasis without obstruction; I25.2 Old myocardial infarction; Z82.49 Family history of ischemic heart disease and other diseases of the circulatory system; Z80.9 Family history of malignant neoplasm, unspecified; Z95.5 Presence of coronary angioplasty implant and graft; Z88.5 Allergy status to narcotic agent; Z79.82 Long term (current) use of aspirin
CPT/HCPCS: 36415; 74177; 80053; 81000; 83690; 85025; 86141

== ENCOUNTER 2020-12-20 05:33 | Outpatient (RCR) | payer MEDICARE, OTHER ==
[~2020-12-20] VITALS: Ht 167.7 cm; Wt 81.4 kg
[~2020-12-20 05:33] MED LIST changes: +ASPI-999 PO; +ATOR80TA76 PO; +CLOP75TA28 PO; -LISI-556 PO; +LISI-729 PO; +METO-333 PO; +PANT40TA52 PO
== END 2020-12-20 10:55 | disposition home or self-care (01) ==
LOC: PREOP 05:33
PROVIDERS: ATTEND Surgery
DX: Z01.812 Encounter for preprocedural laboratory examination (principal); K29.70 Gastritis, unspecified, without bleeding; Z20.822 Contact with and (suspected) exposure to COVID-19
CPT/HCPCS: 87635

== ENCOUNTER 2020-12-22 07:26 | Day surgery (SDC) | payer MEDICARE, OTHER ==
[~2020-12-22] VITALS: Ht 167.7 cm; Wt 81.4 kg
[2020-12-22] VITALS (14 sets, daily range): BP systolic 128–150; BP diastolic 62–87
[2020-12-22] MEDS ORDERED: ceFAZolin 2 GM IV Premixed 50 ML IV ONE (07:45)
--- NOTE | 2020-12-22 08:13 | Progress Note-Pre Operative ---
Pre-Operative Progress Note H&P Reviewed The H&P was reviewed, patient examined and no changes noted. Time Seen by Provider: 08:08 Date H&P Reviewed: Dec 22, 2020 Time H&P Reviewed: 08:09 Pre-Operative Diagnosis: Gastritis, Cholelithiasis/Cholecystitis BONNIE CHAWLA DO Dec 22, 2020 08:12
[2020-12-22] MEDS: LACTATED RINGERS 1,000 ML IV PRN ×3 (08:17→12:00)
[2020-12-22 08:19] LABS: BASOPHILS % (AUTO) 0 % (0-10); EOSINOPHILS % (AUTO) 0 % (0-10); HEMATOCRIT 38 % (35-52); HEMOGLOBIN 12.6 g/dL (11.5-16.0); LYMPHOCYTES % (AUTO) 18 % (12-44); MEAN CORPUSCULAR HEMOGLOBIN 30 pg (25-34); MEAN CORPUSCULAR HGB CONC 33 g/dL (32-36); MEAN CORPUSCULAR VOLUME 92 fL (80-99); MEAN PLATELET VOLUME 9.1 fL (9.0-12.2); MONOCYTES # (AUTO) 0.6 10^3/uL (0.0-1.0); MONOCYTES % (AUTO) 10 % (0-12); NEUTROPHILS % (AUTO) 71 % (42-75); PLATELET COUNT 257 10^3/uL (130-400); WHITE BLOOD COUNT 5.7 10^3/uL (4.3-11.0)
[2020-12-22] MEDS ORDERED: IOPAMIDOL 61% 30 ML (ISOVUE 300) VIAL ONE (08:24)
[2020-12-22] MEDS ORDERED: LIDOCAINE/EPI 1%-1:200,000 (XYLOCAINE) 10 ML VIAL ONE (08:25)
[2020-12-22] MEDS ORDERED: SEVOFLURANE (ULTANE) 15 ML INHAL SOLN ONE (08:36)
[2020-12-22] MEDS ORDERED: proPOfol 200 MG/20 ML (DIPRIVAN) VIAL IV ONE (08:36)
[2020-12-22] MEDS ORDERED: ONDANSETRON 4 MG/2 ML (SDV) Z0FRAN ONE (08:36)
[2020-12-22] MEDS ORDERED: ROCURONIUM 10 MG/ML 5 ML SYRINGE IV ONE (08:36)
[2020-12-22] MEDS ORDERED: LIDOCAINE PF 2% 5 ML (XYLOCAINE) VIAL ONE (08:36)
[2020-12-22] MEDS ORDERED: MIDAZOLAM 2 MG/2 ML (VERSED) VIAL ONE (08:37)
[2020-12-22] MEDS ORDERED: fentaNYL INJECTION 100 MCG/2 ML AMP ONE (08:37)
--- NOTE | 2020-12-22 10:22 | Progress Note-Post Operative ---
Post-Operative Progess Note Surgeon (s)/Director Plans (s) Surgeon BONNIE CHAWLA DO Director Plans: Josy Pre-Operative Diagnosis Gastritis, Cholelithiasis/Cholecystitis Post-Operative Diagnosis Acute on Chronic Cholecystitis with Cholelithiasis Gastritis Hiatal Hernia Procedure & Operative Findings Date of Procedure 12/22/20 Procedure Performed/Findings PROCEDURE:1) EGD with bx 2) Laparoscopic cholecystectomy with intraoperative cholangiogram. COMPLICATIONS: None. PROCEDURE: The patient was taken to the operating suite and was prepped and draped in sterile fashion. A surgical pause was performed. Just superior to the umbilicus, a 12 mm incision was made. Dissection was taken down to the fascia, which was then scored and grasped with a Molly and the abdomen was then entered. A 0 Vicryl suture was placed in a jnomga-bu-iarpr fashion and a [place] trocar was placed and secured. Pneumoperitoneum was achieved. A 5mm trochar place in the subxyphoid and 2 in the right upper quadrant. The gallbladder was covered with omentum, stuck on from an acute cholecystitis attack, it was also very distended and elected to drain the gallbladder to be able to grasp and elevate it. The adhesions were taken down with blunt dissection and with the bovie electrocautery. There was hydrops of the gallbladder. The cystic duct and cystic artery were then dissected out. The cystic artery was actually in front and it was clipped and cut first, to get it out of the way. Clip was then placed on the distal portion of the cystic duct which was then partially transected. An arrow catheter was inserted into the duct. The cholangiogram was then performed. No filling defects and contrastmade its way into the duodenum. Catheter removed. Clips were placed on proximal portion of the cystic duct and then the duct was then transected. Hook cautery was used to dissect the gallbladder from the gallbladder fossa achieving hemostasis. The gallbladder was placed in an Endobag and removed through the 12 mm trocar site. The abdomen was then reinspected. Copious amounts of irrigation were used to irrigate the abdomen and there were no signs of active bleeding. Hemostasis had been achieved. The 12 mm fascial defect was then closed with 0 Vicryl suture that had been placed in a iqnjgr-li-jisvb fashion. The abdomen was then desufflated, the trocars were removed. The abdomen was then washed and dried. The skin was then closed using 4-0 Monocryl in a subcuticular fashion. The abdomen was washed and dried and Skin Affix was place over incisions. Patient tolerated the procedure well without any complications and was taken to the recovery room in stable condition. assisted on this case helping to make incisions, close incisions, identify anatomy and hold anatomy out of the way. Anesthesia Type GET Estimated Blood Loss Estimated blood loss (mL): less than 10ml Specimens/Packing Specimens Removed GB and contents Antral bx body of stomach bx GE jxn bx BONNIE CHAWLA DO Dec 22, 2020 10:22
[2020-12-22] MEDS ORDERED: ACHD5005 PO (10:24)
--- NOTE | 2020-12-22 10:25 | Endoscopy Discharge Instruct ---
Endo Procedure/Findings Findings 1.: Gastritis 2.: Hiatal Hernia Discharge Instructions - Activity: You might feel a little sleepy until tomorrow. This is due to the medicine you received to relax you. Until tomorrow, you should: NOT drive a car, operate machinery or power tools. NOT drink any alcoholic beverages. NOT make any important decisions or sign importortant papers. Do not return to work until tomorrow, unless otherwise instructed. Resume previous activities tomorrow. Diet: Start by taking liquids. If you tolerate liquids, advance to solid food. 1.: EGD in 3 years Notify Physician - If you experience excessive bleeding, unusual abdominal pain, fever, or chest pain, contact your doctor immediately. Anticoagulants - Hold Coumadin and Aspirin; restart on Sunday morning. BONNIE CHAWLA DO Dec 22, 2020 10:25
--- NOTE | 2020-12-22 10:26 | Discharge Inst-Surgical ---
Discharge Inst-Surgical Depart Medication/Instructions New, Converted or Re-Newed RX: RX Given to Pt/Family Patient Instructions Follow up Appt: Make appointment for 1 week. [phone] Instructions: No lifting greater than 20 pounds. No strenuous activity. May shower in 24 hours, no tub bath or soaking. Use incentive spirometer at home as directed. No Smoking Skin/Wound Care: May remove bandages in am. You need to leave the Dermabond on incision it will fall off on it's own. Symptoms to Report: Appetite Changes, Extremity Discoloration, Numbness/Tingling, Swelling Increased, Bleeding Excessive, Eyesight Changes, Pain Increased, Urine Color Change, Constipation(Persistent), Fever over 101 degree F, Pain/Pressure in chest, Urinating Difficulty, Cough Up/Vomit Blood, Heart Beat Irreg/Pounding, Pain/Pressure in jaw, Cramps in feet or legs, Lightheadedness, Pain/Pressure in shoulder, Diarrhea(Persistent), Memory Changes Suddenly, Questions/Concerns, Weight gain consecutive days, Dizziness/Fainting, Nausea/Vomiting, Shortness of Breath, Weight gain over 2 pounds If questions or concerns contact your physician Or seek help at emergency department. Activity Activity as Tolerated: Yes Activity Instructions: Avoid Stress to Incision Driving Instructions: No Driving/Refer to Diet Discharge Diet: Avoid Fatty Foods, Low Fat/Low Cholesterol Diet After 24 Hours: Clear Liquid if Nauseous If Any Problems/Questions/Issu: Contact Your Physician, Go to Emergency Room Skin/Wound Care Infection Signs and Symptoms: Increased Redness, Foul Odor of Wound, Increased Drainage, Skin Itchy or Has a Rash, Increased Swelling, Temperature Above 101 F Wound Care Comment: Heating pad to shoulder or neck tonight for pain Bathing Instructions: Shower Stitches/Gardiner/Dermabond Dis: Dermabond Ice Pack: Ice On and Off Site BONNIE CHAWLA DO Dec 22, 2020 10:26
[2020-12-22] MEDS ORDERED: morphine INJ 10 MG/ML 1ML (SYR OR VIAL) ONE (10:44)
[2020-12-22] MEDS ORDERED: morphine INJ 10 MG/ML 1ML (SYR OR VIAL) IVP ONE (10:45)
[2020-12-22] MEDS ORDERED: ONDANSETRON 4 MG/2 ML (SDV) Z0FRAN IVP PRN (10:45)
[2020-12-22] MEDS ORDERED: HYDROmorphone 2 MG/ML VIAL (DILAUDID) IV ONE (10:45)
[2020-12-22] MEDS ORDERED: HYDROcodone/APAP 5 MG/325 MG (LORTAB) TAB ONE (11:19)
--- NOTE | 2020-12-22 11:19 | Anesthesia-General Post-Op ---
General Patient Condition Mental Status/LOC: Same as Preop Cardiovascular: Satisfactory Nausea/Vomiting: Absent Respiratory: Satisfactory Pain: Controlled Complications: Absent Post Op Complications Complications None Follow Up Care/Instructions Patient Instructions None needed. Anesthesia/Patient Condition Patient Condition Patient is doing well, having some abdominal pain which is to be expected, stable vital signs, no apparent adverse anesthesia problems. JENNIFER HERNANDEZ DO Dec 22, 2020 11:19
--- NOTE | 2020-12-22 11:30 | Diagnostic Imaging Report ---
EXAMINATION: Fluoroscopy at 9:52 AM. INDICATION: Internal port placement. TECHNIQUE: Fluoroscopic assistance was provided for Dr. Grover Rios during his laparoscopic cholecystectomy procedure. 13.1 seconds of fluoroscopic time was utilized. 79 spot films of the right upper quadrant were received. FINDINGS: There are laparoscopic devices in place. There has been opacification of the common bile duct via a cystic duct catheter. The duct, where visualized, shows no definite defect to suggest a retained calculus; however, the proximal most portion of the duct is not well opacified. There is evidence of extension of the contrast into the small bowel. IMPRESSION: Fluoroscopic assistance was provided for Dr. Rios. Dictated by: Dictated on workstation # [id number]
[2020-12-22] MEDS ORDERED: HYDROcodone/APAP 5 MG/325 MG (LORTAB) TAB PO ONE (11:45)
--- NOTE | 2020-12-22 13:30 | OPERATIVE REPORT ---
DATE OF SERVICE: 12/22/2020 PREOPERATIVE DIAGNOSIS: Gastritis. POSTOPERATIVE DIAGNOSES: Gastritis, hiatal hernia. PROCEDURE: EGD with biopsy. SURGEON: Grover Rios DO TIE SAWYER: None. ANESTHESIA: General endotracheal tube. This was done during the laparoscopic cholecystectomy case. SPECIMEN: Biopsy from the antrum, biopsy of body of stomach, biopsy from GE junction. BLOOD LOSS: Scant. FLUIDS: Per anesthesia. POSTOPERATIVE CONDITION: Stable. INDICATION FOR PROCEDURE: The patient is a 65-year-old female who has been having some upper epigastric pain and some reflux symptoms, needed an EGD. FINDINGS: The patient has some mild gastritis and small hiatal hernia. Pictures taken. PROCEDURE NOTE: After informed consent was obtained, the patient was in the operating room. She had had a gallbladder removed and needed an EGD. She was already intubated. The scope was placed down the mouth through the esophagus into the stomach. Upon entering the stomach, noted some mild gastritis, took a picture of this at the antrum, pushed into the duodenum. Duodenum looked good, took a picture. Pulled back into biopsy of the antrum. Retroflexed the scope, saw small hiatal hernia, took a picture of this and then did a biopsy of body of stomach and then pulled the scope into the GE junction, did a biopsy here, pushed the scope back into the stomach, suctioned all the air out and then pulled the scope up the esophagus and out the mouth. The patient tolerated the procedure. She was then taken to recovery room in stable condition. Job ID: [id number] DocumentID: [id number] Dictated Date: 12/22/2020 10:34:07 Operator Maintainer Date: 12/22/2020 13:30:27 Dictated By: GROVER RIOS DO [facility]
[2020-12-22] MEDS ORDERED: ONDANSETRON 4 MG/2 ML (SDV) Z0FRAN IVP ONE (16:30)
== END 2020-12-22 17:40 | disposition home or self-care (01) ==
LOC: SDC 07:26 → 4TH 16:06 → SDC 17:40
PROVIDERS: ATTEND Surgery
DX: K29.50 Unspecified chronic gastritis without bleeding (principal); K80.12 Calculus of gallbladder with acute and chronic cholecystitis without obstruction; K44.9 Diaphragmatic hernia without obstruction or gangrene; K20.90 Esophagitis, unspecified without bleeding; I10 Essential (primary) hypertension; E78.49 Other hyperlipidemia; E78.01 Familial hypercholesterolemia; I25.10 Atherosclerotic heart disease of native coronary artery without angina pectoris; F41.9 Anxiety disorder, unspecified; Z79.01 Long term (current) use of anticoagulants; Z79.899 Other long term (current) drug therapy; Z79.82 Long term (current) use of aspirin; Z88.5 Allergy status to narcotic agent; Z95.5 Presence of coronary angioplasty implant and graft; Z80.0 Family history of malignant neoplasm of digestive organs
CPT/HCPCS: 36415; 76000; 85025; 87081; 88304; 88305; 88342; 94664

== ENCOUNTER 2020-12-24 10:11 | Emergency (ER) | payer MEDICARE, OTHER ==
[~2020-12-24] VITALS: Ht 167 cm; Wt 79.0 kg
[~2020-12-24 10:11] MED LIST changes: +ACHD5005 PO
[2020-12-24 10:35] VITALS: BP 131/82
[2020-12-24 10:59] LABS: BILIRUBIN,URINE NEGATIVE (NEGATIVE); CLARITY,URINE CLEAR; COLOR,URINE YELLOW; GLUCOSE, URINE (UA) NEGATIVE (NEGATIVE); KETONES,URINE NEGATIVE (NEGATIVE); LEUKOCYTE ESTERASE ,URINE NEGATIVE (NEGATIVE); NITRITE,URINE NEGATIVE (NEGATIVE); PROTEIN,URINE NEGATIVE (NEGATIVE)
[2020-12-24] MEDS ORDERED: fentaNYL INJECTION 100 MCG/2 ML AMP IVP ONE (11:00)
--- NOTE | 2020-12-24 11:04 | ED Abdominal Pain ---
General Chief Complaint: Abdominal/GI Problems Stated Complaint: ABD PAIN Nursing Triage Note: ARRIVED VIA AMB TO ROOM 02 WITH COMPLAINTS OF LOWER ABD PAIN. X DAYS POST LAP CHOLEY WITH DENTON. PT STATES THE HYDROCODONE IS NOT HELPING ET LAST DOSE WAS AT 0300. Sepsis Screen: No Definite Risk Source of Information: Patient Exam Limitations: No Limitations History of Present Illness Date Seen by Provider: Dec 24, 2020 Time Seen by Provider: 10:49 Initial Comments Patient to the ER by private conveyance with chief complaint of abdominal pain e justin since she had her gallbladder out by Dr. Chawla 2 days ago. She feels like her pain is never gotten better since the surgery. She has been drinking chicken noodle soup and fluids and liquid diet. She has occasional nausea but none presently. She has hydrocodone's which she has taken every 8 hours without any significant relief of her pain. She has not had a bowel movement since before the surgery. She denied having dysuria fever chills cough shortness of air. Allergies and Home Medications Allergies Coded Allergies: tramadol (Verified Adverse Reaction, Unknown, nausea, 02/20/20) Home Medications Aspirin 81 Mg Tab.chew, 81 MG PO DAILY, (Reported) Atorvastatin Calcium 80 Mg Tablet, 80 MG PO HS, (Reported) Clopidogrel Bisulfate 75 Mg Tablet, 75 MG PO HS, (Reported) Hydrocodone Bit/Acetaminophen 1 Tab Tab, 1 TAB PO Q8H PRN for PAIN-MODERATE (5- 7) Prescribed by: BONNIE CHAWLA on 12/22/20 1024 Hydrocodone/Acetaminophen 1 Each Tablet, 1-2 TAB PO Q6H PRN for PAIN-MODERATE (5-7) Prescribed by: FELISA KHAN on 12/24/20 1209 Metoprolol Tartrate 25 Mg Tablet, 12.5 MG PO BID, (Reported) take 1/2 of 25mg tab Ondansetron 4 Mg Tab.rapdis, 4 MG PO Q6H PRN for NAUSEA/VOMITING Prescribed by: FELISA KHAN on 12/24/20 1209 Pantoprazole Sodium 40 Mg Tablet.dr, 40 MG PO DAILY, (Reported) Patient Home Medication List Home Medication List Reviewed: Yes Review of Systems Review of Systems Constitutional: No chills, No diaphoresis, No malaise EENTM: No Blurred Vision, No Double Vision Respiratory: Denies Cough, Denies Shortness of Air Cardiovascular: Denies Chest Pain, Denies Lightheadedness Gastrointestinal: See HPI, Abdominal Pain, Constipated; Denies Diarrhea Genitourinary: Denies Burning, Denies Discharge Musculoskeletal: No back pain, No joint pain Psychiatric/Neurological: Denies Anxiety, Denies Depressed All Other Systems Reviewed Negative Unless Noted: Yes Past Ksubfkb-Ersmcx-Icqzzm Hx Patient Social History Alcohol Use: Denies Use Smoking Status: Never a Smoker 2nd Hand Smoke Exposure: No Recent Infectious Disease Expo: No Recent Hopitalizations: No Immunizations Up To Date Tetanus Booster (TDap): Unknown Seasonal Allergies Seasonal Allergies: No Past Medical History Surgeries: Yes (COLONOSCOPY, R HIP REPLACEMENT, RIGHT FEMORAL STENT) Abdominal, Coronary Stent, Tonsillectomy Respiratory: No Cardiac: Yes (STENT PLACED 02/21/20) Heart Attack, Hypertension Neurological: No Reproductive Disorders: No Sexually Transmitted Disease: No HIV/AIDS: No Genitourinary: No Gastrointestinal: Yes Gall Bladder Disease Musculoskeletal: No Endocrine: No HEENT: No Cancer: No Psychosocial: No Integumentary: No Blood Disorders: No Adverse Reaction/Blood Tranf: No Family Medical History Patient reports no known family medical history. Heart Disease, Cancer Physical Exam Vital Signs Vital Signs - First Documented 12/24/20 10:35 Temp 36.9 Pulse 92 Resp 16 B/P (MAP) 131/82 (98) Pulse Ox 94 O2 Delivery Room Air Capillary Refill : Less Than 3 Seconds Height/Weight/BMI Height: 5'6" Weight: 160lbs. oz. 72.651951un; 28.00 BMI Method: General Appearance: WD/WN, no apparent distress HEENT: PERRL/EOMI, pharynx normal Neck: full range of motion, normal inspection Respiratory: normal breath sounds, no respiratory distress, no accessory muscle use Cardiovascular: normal peripheral pulses, regular rate, rhythm Peripheral Pulses: 2+ Radial Pulses (R), 2+ Radial Pulses (L) Gastrointestinal: normal bowel sounds, soft, tenderness, other (Clean dry intact well-healed, glued laparoscopic wounds) Extremities: normal inspection, normal capillary refill Neurologic/Psychiatric: alert, normal mood/affect, oriented x 3 Skin: normal color, warm/dry Progress/Results/Core Measures Results/Orders Lab Results Laboratory Tests Test 12/24/20 10:53 12/24/20 11:10 Range/Units Urine Color YELLOW Urine Clarity CLEAR Urine pH 6.0 5-9 Urine Specific [place] 1.010 L 1.016-1.022 Urine Protein NEGATIVE NEGATIVE Urine Glucose (UA) NEGATIVE NEGATIVE Urine Ketones NEGATIVE NEGATIVE Urine Nitrite NEGATIVE NEGATIVE Urine Bilirubin NEGATIVE NEGATIVE Urine Urobilinogen 0.2 < = 1.0 MG/DL Urine Leukocyte Esterase NEGATIVE NEGATIVE Urine RBC (Auto) NEGATIVE NEGATIVE Urine RBC NONE /HPF Urine WBC NONE /HPF Urine Squamous Epithelial Cells RARE /HPF Urine Crystals NONE /LPF Urine Bacteria NEGATIVE /HPF Urine Casts NONE /LPF Urine Mucus NEGATIVE /LPF Urine Culture Indicated NO White Blood Count 11.1 H 4.3-11.0 10^3/uL Red Blood Count 4.01 3.80-5.11 10^6/uL Hemoglobin 12.0 11.5-16.0 g/dL Hematocrit 36 35-52 % Mean Corpuscular Volume 91 80-99 fL Mean Corpuscular Hemoglobin 30 25-34 pg Mean Corpuscular Hemoglobin Concent 33 32-36 g/dL Red Cell Distribution Width 12.7 10.0-14.5 % Platelet Count 253 130-400 10^3/uL Mean Platelet Volume 9.1 9.0-12.2 fL Immature Granulocyte % (Auto) 0 % Neutrophils (%) (Auto) 80 H 42-75 % Lymphocytes (%) (Auto) 12 12-44 % Monocytes (%) (Auto) 8 0-12 % Eosinophils (%) (Auto) 0 0-10 % Basophils (%) (Auto) 0 0-10 % Neutrophils # (Auto) 8.9 H 1.8-7.8 10^3/uL Lymphocytes # (Auto) 1.3 1.0-4.0 10^3/uL Monocytes # (Auto) 0.9 0.0-1.0 10^3/uL Eosinophils # (Auto) 0.0 0.0-0.3 10^3/uL Basophils # (Auto) 0.0 0.0-0.1 10^3/uL Immature Granulocyte # (Auto) 0.1 0.0-0.1 10^3/uL Sodium Level 137 135-145 MMOL/L Potassium Level 3.7 3.6-5.0 MMOL/L Chloride Level 104 98-107 MMOL/L Carbon Dioxide Level 24 21-32 MMOL/L Anion Gap 9 5-14 MMOL/L Blood Urea Nitrogen 13 7-18 MG/DL Creatinine 0.79 0.60-1.30 MG/DL Estimat Glomerular Filtration Rate > 60 BUN/Creatinine Ratio 16 Glucose Level 99 70-105 MG/DL Calcium Level 9.0 8.5-10.1 MG/DL Corrected Calcium 8.8 8.5-10.1 MG/DL Total Bilirubin 0.5 0.1-1.0 MG/DL Aspartate Amino Transf (AST/SGOT) 23 5-34 U/L Alanine Aminotransferase (ALT/SGPT) 33 0-55 U/L Alkaline Phosphatase 81 40-136 U/L C-Reactive Protein High Sensitivity 4.09 H 0.00-0.50 MG/DL Total Protein 7.9 6.4-8.2 GM/DL Albumin 4.2 3.2-4.5 GM/DL Lipase 41 8-78 U/L My Orders Orders - FELISA KHAN Ua Culture If Indicated (12/24/20 10:18) Cbc With Automated Diff (12/24/20 10:58) Comprehensive Metabolic Panel (12/24/20 10:58) Hs C Reactive Protein (12/24/20 10:58) Lipase (12/24/20 10:58) Abdomen/Kub 1view (12/24/20 10:58) Fentanyl Injection (Sublimaze Injection (12/24/20 11:00) Ed Iv/Invasive Line Start (12/24/20 10:58) Medications Given in ED Current Medications Medications Dose Ordered Sig/Josh Route Start Time Stop Time Status Last Admin Dose Admin Fentanyl Citrate 75 mcg ONCE ONCE IVP 12/24/20 11:00 12/24/20 11:01 DC 12/24/20 11:09 75 MCG Vital Signs/I&O 12/24/20 10:35 Temp 36.9 Pulse 92 Resp 16 B/P (MAP) 131/82 (98) Pulse Ox 94 O2 Delivery Room Air Blood Pressure Mean: 98 Progress Progress Note #1: Time: 11:04 Progress Note 75 mcg of fentanyl IV to help get her pain under control. Suspect constipation/obstipation. A KUB will help us look at this as well as for any free air under the abdomen. Labs and urinalysis. Progress Note #2: Time: 12:00 Progress Note Pain is significantly improved and so the patient was allowed to discharge home with some pain medicines and follow-up with her surgeon. Diagnostic Imaging Diagonstic Imaging: Xray Plain Films/CT/US/NM/MRI: abdomen Comments [facility] [place] NAME: MINA NEGRON [facility] REC#: [id number] PT STATUS: REG ER : 1955 PHYSICIAN: FELISA KHAN MD ADMIT DATE: 12/24/20/ER Draft Date of Exam:12/24/20 ABDOMEN/KUB 1VIEW INDICATION: Epigastric pain. Gallbladder surgery 2 days ago. FINDINGS: KUB. There are surgical clips in the biliary fossa. There is moderate amount of stool in the ascending colon. There is some gas and stool throughout the colon into the rectum. The stomach and small bowel are not distended. There is no organomegaly. There is a phlebolith in the pelvis. Moderate scoliosis of the lumbar spine to the right with moderate hypertrophic endplate changes. IMPRESSION: No acute abnormalities noted. Dictated on workstation # [id number] Dict: 12/24/20 1143 Trans: 12/24/20 1147 [facility] [id number] Interpreted by: BONNIE HAZEL MD Electronically signed by: Reviewed: Reviewed by Me Departure Impression Primary Impression: Obstipation Additional Impression: Hx laparoscopic cholecystectomy Disposition: 01 HOME, SELF-CARE Condition: Stable Departure-Patient Inst. Decision time for Depature: 11:54 Referrals: JACQUES SIERRA MD (PCP/Family) Primary Care Physician BONNIE CHAWLA DO Patient Instructions: Constipation, Adult ED Add. Discharge Instructions: Hydrocodone 1 to 2 tablets every 6 hours as necessary to control your pain. Start taking Colace 2 capsules twice a day. MiraLAX 1 capful in 6 to 8 ounces of fluid of your choice up to 4 times a day until you have her results. Return to the ER for intractable pain or nausea. Ondansetron 1 tablet every 6 hours under the tongue as necessary for nausea or vomiting All discharge instructions reviewed with patient and/or family. Voiced understanding. Scripts Ondansetron (Ondansetron Odt) 4 Mg Tab.rapdis 4 MG PO Q6H PRN for NAUSEA/VOMITING, #8 TAB 0 Refills Prov: FELISA KHAN 12/24/20 Hydrocodone/Acetaminophen (Hydrocodone-Acetamin 5-325 mg) 1 Each Tablet 1-2 TAB PO Q6H PRN for PAIN-MODERATE (5-7) for 3 Days, #16 TAB 0 Refills Prov: FELISA KHAN 12/24/20 Copy Copies To 1: BONNIE CHAWLA DO FELISA KHAN Dec 24, 2020 11:04
[2020-12-24 11:15] LABS: BACTERIA,URINE NEGATIVE /HPF; SQUAMOUS EPITHELIAL CELL,UR RARE /HPF
[2020-12-24 11:18] LABS: BASOPHILS % (AUTO) 0 % (0-10); EOSINOPHILS % (AUTO) 0 % (0-10); HEMATOCRIT 36 % (35-52); LYMPHOCYTES # (AUTO) 1.3 10^3/uL (1.0-4.0); LYMPHOCYTES % (AUTO) 12 % (12-44); MEAN CORPUSCULAR HEMOGLOBIN 30 pg (25-34); MEAN CORPUSCULAR HGB CONC 33 g/dL (32-36); MEAN CORPUSCULAR VOLUME 91 fL (80-99); MEAN PLATELET VOLUME 9.1 fL (9.0-12.2); MONOCYTES # (AUTO) 0.9 10^3/uL (0.0-1.0); MONOCYTES % (AUTO) 8 % (0-12); NEUTROPHILS # (AUTO) 8.9 10^3/uL (1.8-7.8); NEUTROPHILS % (AUTO) 80 % (42-75); PLATELET COUNT 253 10^3/uL (130-400); WHITE BLOOD COUNT 11.1 10^3/uL (4.3-11.0)
[2020-12-24 11:36] LABS: ALBUMIN 4.2 GM/DL (3.2-4.5); CHLORIDE 104 MMOL/L (98-107); POTASSIUM 3.7 MMOL/L (3.6-5.0); SODIUM 137 MMOL/L (135-145)
[2020-12-24 11:39] LABS: GLUCOSE 99 MG/DL (70-105); TOTAL PROTEIN 7.9 GM/DL (6.4-8.2)
[2020-12-24 11:40] LABS: BILIRUBIN,TOTAL 0.5 MG/DL (0.1-1.0); CARBON DIOXIDE 24 MMOL/L (21-32)
[2020-12-24 11:42] LABS: ALKALINE PHOSPHATASE 81 U/L (40-136); CREATININE SERUM 0.79 MG/DL (0.60-1.30); GFR ESTIMATED > 60
[2020-12-24 11:43] LABS: BUN/CREATININE RATIO 16
[2020-12-24 11:45] LABS: ALANINE AMINOTRANSFERASE 33 U/L (0-55); LIPASE 41 U/L (8-78)
--- NOTE | 2020-12-24 11:47 | Diagnostic Imaging Report ---
INDICATION: Epigastric pain. Gallbladder surgery 2 days ago. FINDINGS: KUB. There are surgical clips in the biliary fossa. There is moderate amount of stool in the ascending colon. There is some gas and stool throughout the colon into the rectum. The stomach and small bowel are not distended. There is no organomegaly. There is a phlebolith in the pelvis. Moderate scoliosis of the lumbar spine to the right with moderate hypertrophic endplate changes. IMPRESSION: No acute abnormalities noted. Dictated by: Dictated on workstation # [id number]
[2020-12-24] MEDS ORDERED: ONDA4TAB11 PO (12:09)
[2020-12-24] MEDS ORDERED: ACHD5005 PO (12:09)
== END 2020-12-24 12:25 ==
LOC: EDUNIT# 10:11 → ER 10:13
DX: K59.00 Constipation, unspecified (principal); I25.2 Old myocardial infarction; I10 Essential (primary) hypertension; Z90.49 Acquired absence of other specified parts of digestive tract; Z88.5 Allergy status to narcotic agent; Z95.9 Presence of cardiac and vascular implant and graft, unspecified; Z82.49 Family history of ischemic heart disease and other diseases of the circulatory system; Z80.9 Family history of malignant neoplasm, unspecified; Z79.82 Long term (current) use of aspirin
CPT/HCPCS: 36415; 74018; 80053; 81000; 83690; 85025; 86141

== ENCOUNTER → 2022-04-20 | Outpatient (RCR) | payer MEDICARE, OTHER ==
[~2022-04-20] MED LIST changes: -LISI-729 PO; +LISI5TAB20 PO; +ONDA4TAB11 PO
== END | disposition home or self-care (01) ==
PROVIDERS: ATTEND Orthopaedic Surgery
DX: M54.30 Sciatica, unspecified side (principal)

== ENCOUNTER 2022-05-18 16:19 | Outpatient (RCR) | payer MEDICARE, OTHER | END 2022-05-21 | disposition home or self-care (01) | PROVIDERS: ATTEND Orthopaedic Surgery | DX: M54.30 Sciatica, unspecified side (principal) ==

== ENCOUNTER 2022-05-26 16:12 | Outpatient (RCR) | payer MEDICARE, OTHER | END 2022-05-26 16:13 | disposition home or self-care (01) | PROVIDERS: ATTEND Orthopaedic Surgery | DX: M54.30 Sciatica, unspecified side (principal) ==

== ENCOUNTER → 2022-07-07 | Outpatient (CLI) | payer MEDICARE, OTHER ==
[~2022-07-07] MED LIST changes: +CATHETER FLUSH 10 ML SYR IVP PRN; +REGADENOSON 0.4 MG/5 ML SYR (LEXISCAN) IV ONE
[2022-07-07 08:32] VITALS: BP 140/69
== END ==
LOC: CARD 07:30
PROVIDERS: ATTEND Nurse Practitioner Family
DX: I25.10 Atherosclerotic heart disease of native coronary artery without angina pectoris (principal)
CPT/HCPCS: 78452; 93017; A9502

== ENCOUNTER → 2022-07-10 | Outpatient (CLI) | payer MEDICARE, OTHER ==
[~2022-07-10] MED LIST changes: -CATHETER FLUSH 10 ML SYR IVP PRN; -REGADENOSON 0.4 MG/5 ML SYR (LEXISCAN) IV ONE
== END ==
LOC: CARD 09:03
PROVIDERS: ATTEND Nurse Practitioner Family
DX: I51.9 Heart disease, unspecified (principal)
CPT/HCPCS: 93306

== ENCOUNTER 2023-07-26 18:52 | Emergency (ER) | payer MEDICARE, OTHER ==
[~2023-07-26] VITALS: Ht 167.7 cm; Wt 79.3 kg
[2023-07-26 19:04] VITALS: BP 154/98
[2023-07-26] MEDS ORDERED: RX-PHENERGAN 25 MG SUPP PPK#3 PR STA (19:10)
[2023-07-26] MEDS ORDERED: PROM25SU44 RC (19:14)
--- NOTE | 2023-07-26 19:17 | ED General ---
General Chief Complaint: COVID19 Suspect/Confirmed Stated Complaint: COVID + SINCE 07/24 Nursing Triage Note: PT AMB TO RM 10 WITH CC OF N/V. PT TESTED POSITIVE FOR COVID ON SUNDAY. PT HAS HAD FEVER, COUGH, RUNNY NOSE, AND N/V FOR SEVERAL DAYS. Source of Information: Patient History of Present Illness Date Seen by Provider: Jul 26, 2023 Time Seen by Provider: 18:58 Initial Comments PT ARRIVES VIA POV FROM HOME PT STATES SHE BEGAN GETTING SICK ON SUNDAY NIGHT 07/23/23--SHE HAD KNOWN EXPOSURE TO COVID SHE TESTED POSITIVE FOR COVID ON 07/24/23 AT THE HEALTH DEPARTMENT. SHE HAS HAD SUBJECTIVE FEVER COUGH AND CONGESTION NAUSEA/VOMITING--VOMITED X 1 THIS MORNING. SHE TOOK ZOFRAN ODT X 1 THIS MORNING. STATES IT "DIDN'T HELP" NO DIARRHEA NO ABDOMINAL PAIN PT IS Allergies and Home Medications Allergies Coded Allergies: tramadol (Verified Adverse Reaction, Unknown, nausea, 02/20/20) Patient Home Medication List Aspirin (Aspirin) 81 Mg Tab.chew, 81 MG PO DAILY, (Reported) Entered as Reported by: CHIN HUERTAS on 12/16/20 1204 Atorvastatin Calcium (Atorvastatin Calcium) 80 Mg Tablet, 80 MG PO HS, (Reported) Entered as Reported by: CHIN HUERTAS on 12/16/20 1204 Clopidogrel Bisulfate (Clopidogrel) 75 Mg Tablet, 75 MG PO HS, (Reported) Entered as Reported by: CHIN HUERTAS on 12/16/20 1204 Hydrocodone Bit/Acetaminophen (HYDROcodone/APAP 5 MG/325 MG TAB) 1 Tab Tab, 1 TAB PO Q8H PRN for PAIN-MODERATE (5-7) Prescribed by: BONNIE CHAWLA on 12/22/20 1024 Hydrocodone/Acetaminophen (Hydrocodone-Acetamin 5-325 mg) 1 Each Tablet, 1-2 TAB PO Q6H PRN for PAIN-MODERATE (5-7) Prescribed by: FELISA KHAN on 12/24/20 1209 Metoprolol Tartrate (Metoprolol Tartrate) 25 Mg Tablet, 12.5 MG PO BID, (Reported) Entered as Reported by: CHIN HUERTAS on 12/16/20 1204 Ondansetron (Ondansetron Odt) 4 Mg Tab.rapdis, 4 MG PO Q6H PRN for NAUSEA/VOMITING Prescribed by: FELISA KHAN on 12/24/20 1209 Pantoprazole Sodium (Pantoprazole Sodium) 40 Mg Tablet.dr, 40 MG PO DAILY, (Reported) Entered as Reported by: CHIN HUERTAS on 12/16/20 1204 Promethazine HCl (Promethazine Suppository) 25 Mg Supp.rect, 25 MG RC Q6 Prescribed by: HEAVEN BAILON on 07/26/23 1914 Past Vmcvgwl-Pisvqa-Uwdbam Hx Patient Social History Tobacco Use?: No Substance use?: No Alcohol Use?: No Immunizations Up To Date Tetanus Booster (TDap): Unknown Seasonal Allergies Seasonal Allergies: No Past Medical History Surgery/Hospitalization HX: GALLBLADDER, STENT 2020 Surgeries: Yes (COLONOSCOPY, R HIP REPLACEMENT, RIGHT FEMORAL STENT) Abdominal, Coronary Stent, Tonsillectomy Respiratory: No Cardiac: Yes (STENT PLACED 02/21/20) Heart Attack, Hypertension Neurological: No Reproductive Disorders: No Sexually Transmitted Disease: No HIV/AIDS: No Genitourinary: No Gastrointestinal: Yes Gall Bladder Disease Musculoskeletal: No Endocrine: No HEENT: No Cancer: No Psychosocial: No Integumentary: No Blood Disorders: No Adverse Reaction/Blood Tranf: No Family Medical History Patient reports no known family medical history. Heart Disease, Cancer Physical Exam Vital Signs Vital Signs - First Documented 07/26/23 19:04 Temp 36.3 Pulse 86 B/P (MAP) 154/98 (116) Pulse Ox 94 O2 Delivery Room Air Capillary Refill : Height, Weight, BMI Height: 5'6" Weight: 160lbs. oz. 72.549051yy; 28.00 BMI Method: Progress/Results/Core Measures Suspected Sepsis SIRS Temperature: Pulse: 86 Respiratory Rate: Blood Pressure 154 /98 Mean: 116 Results/Orders My Orders Orders - HEAVEN BAILON DO Rx-Promethazine Hcl (Rx-Phenergan Supp) (07/26/23 19:10) Vital Signs/I&O 07/26/23 19:04 Temp 36.3 Pulse 86 B/P (MAP) 154/98 (116) Pulse Ox 94 O2 Delivery Room Air Capillary Refill : Blood Pressure Mean: 116 Departure Impression Primary Impression: COVID-19 virus infection Additional Impression: Nausea and vomiting Disposition: 01 HOME, SELF-CARE Condition: Stable Departure-Patient Inst. Decision time for Depature: 19:13 Referrals: JACQUES SIERRA MD (PCP) Primary Care Physician Patient Instructions: COVID-19 ED, Nausea and Vomiting, Adult ED, Preventing the Spread of an Infectious Disease Add. Discharge Instructions: LOTS OF CLEAR [id number], BROTH, JELLO, GATORADE WHEN YOUR NAUSEA IS BETTER, ADD BRATS DIET TO CLEAR LIQUIDS--BANANAS, RICE, APPLESAUCE, TOAST, SALTINES YOU MAY CONTINUE ZOFRAN EVERY 4 HOURS NEEDED FOR NAUSEA FOLLOW UP WITH YOUR DR TOMORROW IF NO BETTER All discharge instructions reviewed with patient and/or family. Voiced understanding. Scripts Promethazine HCl (Promethazine Suppository) 25 Mg Supp.rect 25 MG RC Q6 for Nausea/Vomiting, #10 SUPP.RECT Prov: HEVAEN BAILON DO 07/26/23 HEAVEN BAILON DO Jul 26, 2023 19:17
== END 2023-07-26 19:24 | disposition home or self-care (01) ==
LOC: EDUNIT# 18:52 → ER 18:55
DX: U07.1 COVID-19 (principal); R11.2 Nausea with vomiting, unspecified; R05.9 Cough, unspecified; R50.9 Fever, unspecified; R09.81 Nasal congestion; Z73.0 Burn-out
CPT/HCPCS: 99281